=== PATIENT | female | born 1945 | race African-American/Black ===

== ENCOUNTER 2019-01-26 09:47 | Inpatient (IN) | payer MEDICARE, OTHER ==
[~2019-01-26 09:47] MED LIST: Heparin 10,000 UNITS/ 10 ML VIAL ONE
[2019-01-26 10:23] LABS: Bilirubin Negative (Negative); Blood, Urine Large (Negative); Clarity TURBID (Clear); Glucose, Urine (Dipstick) Negative (Negative); Leukocyte Large (Negative); Nitrite Positive (Negative); Protein, Urine (Dipstick) 300 mg/dL (Neg-Trace); pH, Urine 6.5 (5.0-9.0)
[2019-01-26 10:27] LABS: Bacteria/HPF 3+ HPF (None Seen); RBC/HPF GREATER THAN 50-TNTC HPF (0-3)
[2019-01-26 10:28] LABS: Pathc Cast-AUWi Flag 471.86 (0-2.49)
[2019-01-26 10:29] LABS: Specific Gravity, Urine 1.055 (1.002-1.036)
[2019-01-26 10:39] LABS: #Eosinphils 0.1 thou/uL (0.0-0.7); #Lymphocytes 2.7 thou/uL (1.20-3.40); #Monocytes 0.5 thou/uL (0.11-0.59); #Neutrophils 2.7 thou/uL (1.40-6.50); %Basophils 0.5 % (0.0-1.0); %Eosinophils 0.9 % (0.0-10.0); %Lymphocytes 45.9 % (21.0-51.0); %Monocytes 8.1 % (0.0-10.0); %Neutrophils 44.6 % (42.0-75.0); Hemoglobin 9.7 g/dL (12.0-16.0); Mean Corpuscular HGB CONC 31.6 g/dL (32.0-36.0); Mean Corpuscular Hemoglobin 28.5 pg (27.0-31.0); Mean Corpuscular Volume 90.1 fL (78.0-98.0); Mean Platelet Volume 6.6 fL (7.4-10.4); Platelet Count 463 thou/uL (130-400); RBC Distribution Width 14.1 % (11.5-14.5); Red Blood Cell (RBC) Count 3.39 mill/uL (4.20-5.40)
[2019-01-26 10:43] LABS: Hyaline Casts/LPF 0-3 HYALINE CAST LPF (0-3 Hyaline); Other Casts/LPF None Seen LPF (0-3 Hyaline)
[2019-01-26 10:45] LABS: Crystals/HPF None Seen HPF (Negative)
[2019-01-26 10:59] LABS: ALT (SGPT) 11 U/L (8-55); AST (SGOT) 17 U/L (5-34); Albumin 3.9 g/dL (3.4-4.8); Alkaline Phosphatase 70 U/L (40-150); Anion Gap 11 mmol/L (10-20); BUN (Urea Nitrogen) 15 mg/dL (9.8-20.1); Bilirubin, Total 0.6 mg/dL (0.2-1.2); Calc. Creatinine Clearance 0 mL/min (70-130); Calcium 10.1 mg/dL (7.8-10.44); Carbon Dioxide 30 mmol/L (23-31); Chloride 97 mmol/L (98-107); Estimated GFR-MDRD 81; Glucose 129 mg/dL (83-110); Lipase 24 U/L (8-78); Potassium 3.9 mmol/L (3.5-5.1); Protein, Total 7.9 g/dL (6.0-8.3); Sodium 134 mmol/L (136-145)
[2019-01-26] MEDS ORDERED: Piperacillin/Tazobactam 3.375 GM VIAL ONE (11:50)
[2019-01-26] MEDS ORDERED: Ondansetron PF 4 MG/2 ML Vial IVP PRN (14:50)
[2019-01-26 14:51] VITALS: BMI 20.2
[2019-01-26] MEDS ORDERED: MEROPENEM IVPB PRN (14:56)
[2019-01-26] MEDS ORDERED: MEROPENEM 1 GM/50 ML 1 GM in Premix Bag 1 BAG IVPB SCH (15:00)
[2019-01-26] MEDS: Sodium Chloride 0.9% 1,000 ML IV SCH (15:24)
[2019-01-26] MEDS: MEROPENEM 1 GM/50 ML 1 GM in Premix Bag 1 BAG IVPB SCH ×2 (16:31→23:48)
[2019-01-26] MEDS: Famotidine/PF 20 mg/2ml Vial SLOW IVP SCH (20:15)
[2019-01-26] MEDS ORDERED: Heparin 1,000 UNITS/ML VIAL ONE (20:15)
--- NOTE | 2019-01-27 00:02 | HP ---
CHIEF COMPLAINT: Sent from PCP's office for abdominal pain. HISTORY OF PRESENT ILLNESS: The patient is a 73-year-old female, who was sent from her PCP's office with complaints of left lower abdominal pain going on for the past month. Upon asking, the patient's , who is at the bedside, he stated that the patient has had about a 14-pound weight loss since about a month. He also states that she has had decreased appetite. Denied any fevers or chills; however, has been complaining of pain to her left lower quadrant. According to the patient, she has not been having any issues with having bowel movements; however, has not been having many bowel movements. Her last colonoscopy, I believe, was a few years back according to the , who is at the bedside. The patient today upon following up with the PCP, the PCP had ordered a CT abdomen and pelvis. The findings of the abdomen and pelvis CAT scan concerned the PCP, so the patient was admitted to the hospital for further evaluation. PAST MEDICAL HISTORY: The patient has a history of atrial fibrillation, hypertension, anemia, H pylori. PAST SURGICAL HISTORY: She has had a mitral valve repair. FAMILY HISTORY: History of heart disease and hypertension. ALLERGIES: SHE HAS NO KNOWN DRUG ALLERGIES. REVIEW OF SYSTEMS: All negative except for the ones mentioned above in the HPI. SOCIAL HISTORY: Denies any alcohol use, drug use, or smoking history. She is a full code and lives with her . PHYSICAL EXAMINATION: VITAL SIGNS: As of the following: Temperature of 97.6, 69, 16, 98% on room air and 122/55. GENERAL: She is awake, alert, and oriented x3, does not appear in any distress. CV: S1 and S2 present. No murmurs, rubs, or gallops. LUNGS: Clear to auscultation. No rhonchi or wheezes noted. HEENT: Normocephalic, atraumatic. No lymphadenopathy noted. Pupils are equal and reactive to light. ABDOMEN: Soft. Bowel sounds are present x2. She does have pain upon palpation to her left lower quadrant and umbilical area. NEUROVASCULAR: No focal deficits noted. SKIN: No cuts, lesions or bruises noted. LABORATORY RESULTS: As of the following: WBCs of 6.0, hemoglobin of 9.7, hematocrit of 30.5, platelets of 463. Chemistry: Sodium of 134, potassium of 3.9, BUN of 15, creatinine 0.83. She did have a CT abdomen and pelvis, which indicated a 2.8 x 2.6 cm fluid collection in the left paracolic gutter. Also, CT of abdomen and pelvis indicated distal descending colon and sigmoid colon diverticulitis. UA had positive nitrites. ASSESSMENT AND PLAN: The patient is a 73-year-old female, who presents to the hospital with complaints of generalized weakness and weight loss. 1. Diverticulitis with abscess. We will start the patient on IV antibiotics given the fact that the patient also has a urinary tract infection. Upon reviewing her records, had urinary tract infection in the past, her cultures have been indicating enterococcus and Escherichia coli; however, the Escherichia coli that she had last year was resistant to the quinolones and had intermediate reactivity to Zosyn. At this time, I will start her on meropenem and that will cover her intra-abdominal infection and also will cover her urinary tract infection. I will also consult Infectious Disease and I will consult Surgery if the patient requires any surgical intervention or drain placement. We will start her on some gentle hydration. We will keep her n.p.o. for now and continue to monitor. 2. Anemia. The patient is on Eliquis. I believe it is for paroxysmal atrial fibrillation. I will hold off on the Eliquis for now since she may require a surgical intervention. 3. Deep venous thrombosis prophylaxis. We will put the patient on some SCDs for now. Job ID: [id number]
--- NOTE | 2019-01-27 00:55 | CON ---
DATE OF CONSULTATION: 01/26/2019 REASON FOR CONSULTATION: Intraabdominal abscess. HISTORY OF PRESENT ILLNESS: A 73-year-old patient who has a history of sick sinus syndrome with a pacemaker; prior abnormal urine cytology, which led to multiple urological procedures but all negative specimens for bladder cancer and has had a previous colonoscopy about 6-[address] Bartlett, we do not have the report of that procedure, but apparently she did not have any major findings, who developed fairly rapid onset of abdominal pain in the left lower quadrant over the past few days and eventually was admitted. A CT of abdomen demonstrated what appears to be a diverticular abscess in the left lower quadrant. Currently, she is awake, appears in no distress. No headaches, visual symptoms, sore throat, odynophagia, or dysphagia. No cough, sputum production, chest pain, abdominal pain, or diarrhea. No genitourinary symptoms. No constipation. No joint symptoms. No neurological symptoms. PAST MEDICAL HISTORY: Sick sinus syndrome with pacemaker, abnormal urine cytology which was performed for evaluation of microscopic hematuria, urethral stricture. ALLERGIES: SHE HAS NO DRUG ALLERGIES. CURRENT MEDICATIONS: Include: 1. Tylenol. 2. Meropenem. 3. Zofran. FAMILY HISTORY: Noncontributory. SOCIAL HISTORY: She is . She used to work for [employer] at the [employer] for many years. No never smoker. No alcoholic beverage use. PHYSICAL EXAMINATION: VITAL SIGNS: T-max 97.6, pulse 69, respirations 16, and O2 saturation 98%. GENERAL: Appears in no distress. SKIN: Unremarkable. She has a peripheral IV access. No Alarcon catheter. No lymphadenopathy. HEENT: Ocular movements conjugate. Oral cavity is not remarkable. NECK: Supple. No jugular venous distention. LUNGS: Symmetric, clear breath sounds. HEART: S1 and S2, regular rate. No S3 or S4. ABDOMEN: Soft, not distended or tender. No ascites. No bladder distention. MUSCULOSKELETAL: No joint inflammatory process. Pulses 1+ in dorsalis pedis. Plantar responses are flexor. Moves all extremities equally. LABORATORY DATA: White cell count 6.0, hemoglobin 9.7, platelets 463 with normal differential. Sodium 134, creatinine 0.83. Normal liver profile. Urinalysis greater than 50 wbc's, greater than 50 rbc's. The abdomen and pelvis CT which was performed demonstrates fluid in the left paracolic gutter peripherally enhancement collection air-fluid level left lower quadrant measuring 2.8 x 2.6 cm contiguous with a more superficial component, which was probably air-filled measuring 5.3 x 1.7. A diverticular abscess is favored. This inflamed collection does abut the superior aspect of the urinary bladder. There are diverticula throughout the colon, distal descending colon wall thickening, adjacent pericolonic stranding suggestive of diverticulitis. ASSESSMENT: 1. Abdominal pain of new onset. 2. History of sick sinus syndrome with pacemaker. 3. History of episodes of hematuria with normal biopsies. 4. Abnormal findings on CT scan associated with abdominal pain suggestive of ruptured diverticulitis with abscess. DISCUSSION: The area of the abscess and diverticulitis close to the bladder and this may be the reason for her episodes of hematuria. She may develop a fistula between the bladder and the diverticular abscess. I have discussed radiology and they will attempt an aspirate of the area and to leave a drain and get some cultures and we will continue meropenem until have the results of the above. Hopefully, be able to transition to oral therapy. Otherwise, she will need a PICC line placement and treatment. It appears that if this is successful, then we could avoid having have to intervene surgically. Job ID: [id number]
[2019-01-27] MEDS: MEROPENEM 1 GM/50 ML 1 GM in Premix Bag 1 BAG IVPB SCH ×3 (06:02→23:54)
[2019-01-27 06:41] LABS: #Eosinphils 0.1 thou/uL (0.0-0.7); #Lymphocytes 3.1 thou/uL (1.20-3.40); #Monocytes 0.6 thou/uL (0.11-0.59); #Neutrophils 2.8 thou/uL (1.40-6.50); %Basophils 0.2 % (0.0-1.0); %Eosinophils 1.4 % (0.0-10.0); %Monocytes 9.2 % (0.0-10.0); %Neutrophils 42.2 % (42.0-75.0); Hemoglobin 8.9 g/dL (12.0-16.0); Mean Corpuscular HGB CONC 32.5 g/dL (32.0-36.0); Mean Corpuscular Hemoglobin 29.1 pg (27.0-31.0); Mean Corpuscular Volume 89.6 fL (78.0-98.0); Mean Platelet Volume 8.1 fL (7.4-10.4); Platelet Count 346 thou/uL (130-400); RBC Distribution Width 14.4 % (11.5-14.5); Red Blood Cell (RBC) Count 3.06 mill/uL (4.20-5.40); White Blood Cell (WBC) Count 6.6 thou/uL (4.8-10.8)
[2019-01-27 06:56] LABS: Anion Gap 12 mmol/L (10-20); BUN (Urea Nitrogen) 11 mg/dL (9.8-20.1); Calc. Creatinine Clearance 64 mL/min (70-130); Calcium 9.2 mg/dL (7.8-10.44); Carbon Dioxide 24 mmol/L (23-31); Chloride 103 mmol/L (98-107); Estimated GFR-MDRD Greater than 90; Glucose 98 mg/dL (83-110); Potassium 4.2 mmol/L (3.5-5.1); Sodium 135 mmol/L (136-145)
[2019-01-27] MEDS: Famotidine/PF 20 mg/2ml Vial SLOW IVP SCH ×2 (08:11→20:44)
[2019-01-27] MEDS: Sodium Chloride 0.9% 1,000 ML IV SCH ×2 (11:07→11:30)
--- NOTE | 2019-01-27 12:19 | CON ---
DATE OF CONSULTATION: CHIEF COMPLAINT: Abdominal pain. HISTORY OF PRESENT ILLNESS: Ms. Perez is a 73-year-old woman with left lower quadrant abdominal pain beginning around the start of this week. She states that she has had pain off and on for the past month or so, but it has been worse for the past week. She denies any fevers or chills, nausea, vomiting, or diarrhea. She states that she had a normal bowel movement last night. She states that she has had a colonoscopy within the past [address] Bartlett, although I do not have that report. A CT of the abdomen and pelvis was performed and it showed a left lower quadrant diverticular abscess and diverticulitis involving the distal descending and proximal sigmoid colon. The patient states that her memory is poor, so much of the history was obtained through chart review. The patient reports that she has lost about 14 pounds since the onset of her abdominal pain a month ago and has not been having very frequent bowel movements. PAST MEDICAL HISTORY: Heart problems according to the patient, but she denies history of AR or heart failure. According to the chart, she has a history of atrial fibrillation and hypertension, anemia, and H pylori. OUTPATIENT MEDICATIONS: 1. Eliquis. 2. Aspirin. 3. Carvedilol. 4. Vitamin D. 5. Donepezil. 6. Lasix. 7. Losartan. 8. Potassium. INPATIENT MEDICATIONS: Include: 1. Pepcid. 2. Meropenem. 3. Zofran. 4. Normal saline. PAST SURGICAL HISTORY: Mitral valve repair according to the chart. Hysterectomy. FAMILY HISTORY: Heart disease and hypertension. ALLERGIES: NO KNOWN DRUG ALLERGIES. SOCIAL HISTORY: She lives with her , who is in good health. Denies any smoking, alcohol, or drug use. PHYSICAL EXAMINATION: VITAL SIGNS: The patient has been afebrile since her admission to the hospital. Heart rate 70, respirations 18, 94% saturated on room air, and blood pressure 124/52. GENERAL: Reveals a healthy-appearing elderly woman, in no acute distress. She is not flushed or toxic in appearance. She is not jaundiced or icteric. HEENT: Unremarkable. NECK: Supple without lymphadenopathy or thyroid nodules. HEART: Regular in its rate and rhythm without murmurs, rubs, or gallops. LUNGS: Clear to auscultation bilaterally. ABDOMEN: Soft and nondistended. She has a healed lower midline scar. No palpable masses or hernias. She is tender to palpation in the left lower quadrant greater than right lower quadrant. Upper abdomen is nontender to palpation. EXTREMITIES: Warm and well perfused without edema. NEURO: No focal deficits. PSYCHIATRIC: Alert and cooperative. She is oriented to self, place and situation, and can give me the month and the year, but not the day of the week or the date. LABORATORY DATA: White count is 6.6. No shift. Hematocrit is 27.4. Sodium is slightly low at 135. Other electrolytes and LFTs are unremarkable. UA was positive for blood and nitrites, but also had 11-20 squamous cells, 3+ bacteria, leukocyte esterase, too numerous to count red cells and white cells. CT images are reviewed and I agree with the written report. The patient has abscess cavity extending from her sigmoid colon and abutting the bladder. There is gas and fluid in this cavity and the adjacent colon is inflamed in appearance. ASSESSMENT: Diverticulitis with diverticular abscess. The patient is already scheduled for percutaneous drainage by Interventional Radiology. She is on meropenem pending culture results. Dr. Silva is managing her antibiotics. If she responds to drainage on antibiotics, then surgery will likely not be necessary. However, she is at risk for fistula formation. I believe that her UA is contaminated, but did have Escherichia coli and Pseudomonas on preliminary culture. The patient does not have any history of frequent urinary tract infections or hematuria or other symptoms to suggest a colovesical fistula. There is no air in the bladder. I will continue to follow the patient while she is admitted. Job ID: [id number]
[2019-01-27 14:25] LABS: INR-International Normal Ratio 1.1; PTT 33.1 SEC (22.9-36.1); Prothrombin Time 14.3 SEC (12.0-14.7)
[2019-01-27] MEDS ORDERED: Sodium Bicarbonate 2.5 MEQ/5 ML VIAL ONE (14:33)
[2019-01-27] MEDS ORDERED: Midazolam HCl 2 mg/2 ml Vial ONE (14:34)
[2019-01-27] MEDS ORDERED: Fentanyl 100 MCG/2 ML VIAL ONE (14:34)
--- NOTE | 2019-01-27 16:29 | CT ---
FCT-guided intra-abdominal abscess drainage: 01/27/2019 TECHNIQUE: Signed proxy informed consent obtained. Supine and position CT table. Left lower quadrant skin prepar ed and draped in usual sterile fashion. 1% lidocaine, buffered with sodium bicarbonate, applied super ficially with 25-gauge needle, then deeply with 22-gauge spinal needle under step CT guidance. The re st of the procedure was also performed under step CT guidance. 5 [place] 15 cm Yueh catheter advanced from lateral approach into abscess at left lateral pelvic inlet. Stylette removed. 5 mL syringe used to aspirate 2 mm of pus, which was sent to laboratory for culture and sensitivity. 0.035 inch short s tiff Amplatz wire advanced through catheter. The Yueh catheter was exchanged over the guidewire for 8 [place] dilator. Dilator was exchanged for 8 [place] general purpose drainage catheter over the wire. Stylette and wire were removed. Drainage catheter pigtail loop was formed and locked into place. Cath eter was sutured in place. Patient tolerated well. No complications. IMPRESSION: Successful placement of 8 [place] general purpose drainage catheter into left lower quadrant diverticu lar abscess.
--- NOTE | 2019-01-27 19:43 | PDOC.PN ---
- Subjective Encounter Start Date: 01/27/19 Encounter Start Time: 08:00 Pt seen for followup re: diverticular abscess. Says she feels well, no complaints. - Objective Vital Signs & Weight: Vital Signs (12 hours) Temp Pulse Resp BP Pulse Ox 01/27/19 19:14 68 F L 68 20 106/65 95 01/27/19 16:32 97.7 F 69 16 126/76 97 01/27/19 11:30 98.0 F 70 18 108/64 96 01/27/19 09:50 94 L Weight Weight 133 lb 5 oz I&O: 01/26/19 01/27/19 01/28/19 06:59 06:59 06:59 Intake Total 365 1150 Output Total 0 Balance 365 1150 Result Diagrams: 01/27/19 05:27 01/27/19 05:27 Additional Labs: Accuchecks 01/27/19 04:59 POC Glucose 113 H Phys Exam - Physical Examination Constitutional: NAD HEENT: moist MMs Neck: supple Respiratory: clear to auscultation bilateral Cardiovascular: RRR Gastrointestinal: soft, non-tender, positive bowel sounds Neurological: moves all 4 limbs Psychiatric: normal affect Dx/Plan (1) Colonic diverticular abscess Code(s): K57.20 - DVTRCLI OF LG INT W PERFORATION AND ABSCESS W/O BLEEDING Status: Acute Comment: Plan for IR-guided drainage, continue IV antibiotics as below (2) UTI (urinary tract infection) Status: Acute Comment: continue IV meropenem (3) Afib Code(s): I48.91 - UNSPECIFIED ATRIAL FIBRILLATION Status: Chronic Comment: Eliquis on hold (4) HTN (hypertension) Code(s): I10 - ESSENTIAL (PRIMARY) HYPERTENSION Status: Chronic Comment: controlled - Plan * . Review of Systems - Review of Systems Constitutional: negative: fever, chills, sweats, weakness, malaise Cardiovascular: negative: chest pain, palpitations, orthopnea, paroxysmal nocturnal dyspnea, edema, light headedness Gastrointestinal: negative: Nausea, Vomiting, Abdominal Pain, Diarrhea, Constipation, Melena, Hematochezia - Medications/Allergies Allergies/Adverse Reactions: Allergies Allergy/AdvReac Type Severity Reaction Status Date / Time No Known Drug Allergies Allergy Verified 01/26/19 14:56 Medications: Current Medications Acetaminophen (Tylenol) 650 mg PO Q4H PRN PRN Reason: Headache/Fever/Mild Pain (1-3) Famotidine (Pepcid) 20 mg SLOW IVP Q12HR [facility] Last Admin: 01/27/19 08:11 Dose: 20 mg Sodium Chloride (Normal Saline 0.9%) 1,000 mls @ 50 mls/hr IV .Q20H [facility] Last Admin: 01/27/19 11:30 Dose: 1,000 mls Meropenem 1 gm/ Device 50 mls @ 100 mls/hr IVPB 0700,1500,2300 [facility] Last Admin: 01/27/19 16:33 Dose: 50 mls Miscellaneous Medication (Pharmacy To Dose) 1 each IVPB PRN PRN PRN Reason: Pharmacy to dose Ondansetron HCl (Zofran) 4 mg IVP Q6H PRN PRN Reason: Nausea/Vomiting
[2019-01-27] MEDS: Acetaminophen 325 MG TAB PO PRN (20:44)
[2019-01-28] MEDS: MEROPENEM 1 GM/50 ML 1 GM in Premix Bag 1 BAG IVPB SCH ×3 (05:22→23:04)
[2019-01-28] MEDS: Sodium Chloride 0.9% 1,000 ML IV SCH ×2 (05:23→08:53)
[2019-01-28] MEDS: Famotidine/PF 20 mg/2ml Vial SLOW IVP SCH ×2 (08:53→19:59)
--- NOTE | 2019-01-28 13:42 | PDOC.PN ---
- Subjective Encounter Start Date: 01/28/19 Encounter Start Time: 08:20 Pt seen for followup for diverticular abscess. says she feels well, no complaints. - Objective MAR Reviewed: Yes Vital Signs & Weight: Vital Signs (12 hours) Temp Pulse Resp BP Pulse Ox 01/28/19 08:00 96 01/28/19 07:17 99.1 F 70 16 103/68 96 01/28/19 04:00 99.0 F 69 20 115/77 96 Weight Weight 133 lb 5 oz I&O: 01/27/19 01/28/19 01/29/19 06:59 06:59 06:59 Intake Total 365 1150 120 Output Total 5 Balance 365 1145 120 Result Diagrams: 01/27/19 05:27 01/27/19 05:27 Additional Labs: Labs reviewed by me Phys Exam - Physical Examination Constitutional: NAD HEENT: moist MMs Neck: supple Respiratory: clear to auscultation bilateral Cardiovascular: RRR Gastrointestinal: soft LLQ drain Neurological: moves all 4 limbs Psychiatric: normal affect Dx/Plan (1) Colonic diverticular abscess Code(s): K57.20 - DVTRCLI OF LG INT W PERFORATION AND ABSCESS W/O BLEEDING Status: Acute Comment: s/p IR-guided drainage. Continue IV antibiotics as below (2) UTI (urinary tract infection) Status: Acute Comment: on IV meropenem (3) Afib Code(s): I48.91 - UNSPECIFIED ATRIAL FIBRILLATION Status: Chronic Comment: will resume Eliquis tomorrow (4) HTN (hypertension) Code(s): I10 - ESSENTIAL (PRIMARY) HYPERTENSION Status: Chronic Comment: controlled - Plan * . Review of Systems - Review of Systems Respiratory: negative: Cough, Shortness of Breath, SOB with Excertion, Pleuritic Pain, Wheezing Cardiovascular: negative: chest pain, palpitations, orthopnea, paroxysmal nocturnal dyspnea, edema, light headedness - Medications/Allergies Allergies/Adverse Reactions: Allergies Allergy/AdvReac Type Severity Reaction Status Date / Time No Known Drug Allergies Allergy Verified 01/26/19 14:56 Medications: Current Medications Acetaminophen (Tylenol) 650 mg PO Q4H PRN PRN Reason: Headache/Fever/Mild Pain (1-3) Last Admin: 01/27/19 20:44 Dose: 650 mg Aspirin (Aspirin Chewable) 81 mg PO DAILY [facility] Donepezil HCl (Aricept) 5 mg PO HS [facility] Famotidine (Pepcid) 20 mg SLOW IVP Q12HR [facility] Last Admin: 01/28/19 08:53 Dose: 20 mg Sodium Chloride (Normal Saline 0.9%) 1,000 mls @ 50 mls/hr IV .Q20H [facility] Last Admin: 01/28/19 08:53 Dose: 1,000 mls Meropenem 1 gm/ Device 50 mls @ 100 mls/hr IVPB 0700,1500,2300 [facility] Last Admin: 01/28/19 05:22 Dose: 50 mls Miscellaneous Medication (Pharmacy To Dose) 1 each IVPB PRN PRN PRN Reason: Pharmacy to dose Non-Formulary Medication (Carvedilol [Carvedilol]) 6.25 mg PO QAM [facility] Non-Formulary Medication (Carvedilol [Carvedilol]) 12.5 mg PO QPM [facility] Non-Formulary Medication (Cholecalciferol (Vitamin D3) [Vitamin D3]) 1,000 unit PO DAILY [facility]
[2019-01-28] MEDS: Acetaminophen 325 MG TAB PO PRN ×2 (14:45→19:59)
--- NOTE | 2019-01-28 15:03 | PRG ---
DATE OF SERVICE: 01/28/2019 SUBJECTIVE: Ms. Perez is feeling better. Still with pain in the left lower quadrant, which is moderate. Voiding without difficulty. No respiratory symptoms. No vomiting. Dr. Love evaluated the patient and she recommends conservative management at this point in time. OBJECTIVE: VITAL SIGNS: T-max 99.7, blood pressure 103/68. GENERAL: Awake, alert, oriented, in no distress. HEENT: Ocular movements conjugate. NECK: Supple. LUNGS: Symmetric, clear breath sounds. HEART: S1-S2, regular rate. ABDOMEN: Soft with moderate tenderness in left flank and left lower quadrant. EXTREMITIES: Moves all extremities equally. LABORATORY DATA: White cell count 6.6, hemoglobin 8.9, and platelets 346. Sodium 135, creatinine 0.73. Microbiology showed two gram-negative rods retrieved from the percutaneous aspirate. The percutaneous aspirate was performed by Dr. Sultana and about 2 mL of purulent exudate was obtained. The Gram stain of this material showed polymicrobial priti with gram-positive cocci, gram-negative rods and gram-positive rods typical for bowel communicating abscesses. The patient is currently on meropenem to be continued. ASSESSMENT AND DISCUSSION: Abdominal pain with evidence of ruptured diverticulitis. There is a concern with early bladder penetration but thus far, there is no overt evidence to suggest this complication. We will continue with IV meropenem until we have the final results of the cultures and then decide if she is going to need oral or continuation of IV therapy with a PICC line in the outpatient setting. Job ID: [id number]
[2019-01-28] MEDS: Donepezil HCl 5 MG TAB PO SCH (19:59)
[2019-01-28] MEDS: Carvedilol 6.25 MG TAB PO SCH (20:00)
[2019-01-29] MEDS: MEROPENEM 1 GM/50 ML 1 GM in Premix Bag 1 BAG IVPB SCH ×3 (05:49→22:24)
[2019-01-29] MEDS: Sodium Chloride 0.9% 1,000 ML IV SCH (05:49)
[2019-01-29 07:47] LABS: #Lymphocytes 1.9 thou/uL (1.20-3.40); #Monocytes 0.5 thou/uL (0.11-0.59); #Neutrophils 5.3 thou/uL (1.40-6.50); %Basophils 0.2 % (0.0-1.0); %Eosinophils 0.4 % (0.0-10.0); %Lymphocytes 24.6 % (21.0-51.0); %Monocytes 6.3 % (0.0-10.0); %Neutrophils 68.4 % (42.0-75.0); Hemoglobin 8.9 g/dL (12.0-16.0); Mean Corpuscular HGB CONC 32.7 g/dL (32.0-36.0); Mean Corpuscular Hemoglobin 28.8 pg (27.0-31.0); Mean Platelet Volume 6.2 fL (7.4-10.4); Platelet Count 369 thou/uL (130-400); RBC Distribution Width 14.1 % (11.5-14.5); Red Blood Cell (RBC) Count 3.08 mill/uL (4.20-5.40); White Blood Cell (WBC) Count 7.7 thou/uL (4.8-10.8)
[2019-01-29 08:03] LABS: Anion Gap 12 mmol/L (10-20); BUN (Urea Nitrogen) 9 mg/dL (9.8-20.1); Calc. Creatinine Clearance 57 mL/min (70-130); Calcium 9.3 mg/dL (7.8-10.44); Carbon Dioxide 25 mmol/L (23-31); Chloride 101 mmol/L (98-107); Estimated GFR-MDRD 82; Glucose 107 mg/dL (83-110); Potassium 4.5 mmol/L (3.5-5.1); Sodium 133 mmol/L (136-145)
[2019-01-29] MEDS: Potassium Chloride 10 MEQ TAB PO SCH (08:40)
[2019-01-29] MEDS: Apixaban 5 MG TAB PO SCH ×2 (08:41→20:22)
[2019-01-29] MEDS: Carvedilol 6.25 MG TAB PO SCH ×2 (08:41→20:22)
[2019-01-29] MEDS: Aspirin Chewable 81 MG TAB PO SCH (08:41)
[2019-01-29] MEDS: Furosemide 20 MG TAB PO SCH (08:41)
[2019-01-29] MEDS: Losartan 25 MG TAB PO SCH (08:42)
[2019-01-29] MEDS: Famotidine/PF 20 mg/2ml Vial SLOW IVP SCH (08:42)
--- NOTE | 2019-01-29 16:01 | PDOC.GSPN ---
Surgery Progress Note: Subj - Subjective Narrative: Feels ok, appetitie poor. Pain about the same as yesterday. Scant murky drainage in bag. decorating machine tender in L>RLQ, no R/R/G. Pseudomonas and EC on prelim cx. A/P) Diverticular abscess s/p perc drainage. Await final culture/sensitivities. Cont med mgmt. Encouraged Ensure and ambulation. Surgery Progress Note: Obj - Vital signs Vital signs: Vital Signs - Most Recent Temp Pulse Resp BP Pulse Ox 99.2 F 69 14 100/60 93 L 01/29/19 08:00 01/29/19 08:00 01/29/19 08:00 01/29/19 08:41 01/29/19 08:42 Surgery Progress Note: Results - Labs Result Diagrams: 01/29/19 07:38 01/29/19 07:38 Lab results: Laboratory Results - last 24 hr 01/29/19 01/29/19 07:38 07:38 WBC 7.7 RBC 3.08 L Hgb 8.9 L Hct 27.1 L MCV 88.0 MCH 28.8 MCHC 32.7 RDW 14.1 Plt Count 369 MPV 6.2 L Neutrophils % 68.4 Lymphocytes % 24.6 Monocytes % 6.3 Eosinophils % 0.4 Basophils % 0.2 Neutrophils # 5.3 Lymphocytes # 1.9 Monocytes # 0.5 Eosinophils # 0.0 Basophils # 0.0 Sodium 133 L Potassium 4.5 Chloride 101 Carbon Dioxide 25 Anion Gap 12 BUN 9 L Creatinine 0.82 Estimated GFR (MDRD) 82 Glucose 107 Calcium 9.3
--- NOTE | 2019-01-29 16:11 | PDOC.PN ---
- Subjective Encounter Start Date: 01/29/19 Encounter Start Time: 08:40 Pt seen for followup re: diverticular abscess. Denies chest pain, shortness of breath, fevers or chills. - Objective MAR Reviewed: Yes Vital Signs & Weight: Vital Signs (12 hours) Temp Pulse Resp BP BP Pulse Ox 01/29/19 08:42 93 L 01/29/19 08:41 100/60 01/29/19 08:00 99.2 F 69 14 100/60 93 L Weight Weight 133 lb 5 oz I&O: 01/28/19 01/29/19 01/30/19 06:59 06:59 06:59 Intake Total 1150 1020 Output Total 5 45 Balance 1145 975 Result Diagrams: 01/29/19 07:38 01/29/19 07:38 Additional Labs: Labs reviewed by me Phys Exam - Physical Examination Constitutional: NAD HEENT: moist MMs Neck: supple Respiratory: clear to auscultation bilateral Cardiovascular: RRR Gastrointestinal: soft Neurological: moves all 4 limbs Psychiatric: normal affect Dx/Plan (1) Colonic diverticular abscess Code(s): K57.20 - DVTRCLI OF LG INT W PERFORATION AND ABSCESS W/O BLEEDING Status: Acute Comment: s/p IR-guided drainage. Continue IV meropenem for Pseudomonas and Enterococcus. (2) UTI (urinary tract infection) Status: Acute Comment: on IV meropenem, E. coli and presumptive pseudomonas aeruginosa. (3) Afib Code(s): I48.91 - UNSPECIFIED ATRIAL FIBRILLATION Status: Chronic Comment: Eliquis resumed (4) HTN (hypertension) Code(s): I10 - ESSENTIAL (PRIMARY) HYPERTENSION Status: Chronic Comment: controlled - Plan * . Review of Systems - Review of Systems Respiratory: negative: Cough, Shortness of Breath, SOB with Excertion, Pleuritic Pain, Wheezing Cardiovascular: negative: chest pain, palpitations, orthopnea, paroxysmal nocturnal dyspnea, edema, light headedness - Medications/Allergies Allergies/Adverse Reactions: Allergies Allergy/AdvReac Type Severity Reaction Status Date / Time No Known Drug Allergies Allergy Verified 01/26/19 14:56 Medications: Current Medications Acetaminophen (Tylenol) 650 mg PO Q4H PRN PRN Reason: Headache/Fever/Mild Pain (1-3) Last Admin: 04/06/19 19:59 Dose: 650 mg Apixaban (Eliquis) 5 mg PO BID [facility] Last Admin: 01/29/19 08:41 Dose: 5 mg Aspirin (Aspirin Chewable) 81 mg PO DAILY [facility] Last Admin: 01/29/19 08:41 Dose: 81 mg Carvedilol (Coreg) 6.25 mg PO QAM [facility] Last Admin: 01/29/19 08:41 Dose: 6.25 mg Carvedilol (Coreg) 12.5 mg PO QPM [facility] Last Admin: 01/28/19 20:00 Dose: Not Given Cholecalciferol (Vitamin D3) 1,000 units PO DAILY [facility] Last Admin: 01/29/19 08:42 Dose: 1,000 units Donepezil HCl (Aricept) 5 mg PO HS [facility] Last Admin: 01/28/19 19:59 Dose: 5 mg Famotidine (Pepcid) 20 mg SLOW IVP Q12HR [facility] Last Admin: 01/29/19 08:42 Dose: 20 mg Furosemide (Lasix) 40 mg PO DAILY [facility] Last Admin: 01/29/19 08:41 Dose: 40 mg Sodium Chloride (Normal Saline 0.9%) 1,000 mls @ 50 mls/hr IV .Q20H [facility] Last Admin: 01/29/19 05:49 Dose: 1,000 mls Meropenem 1 gm/ Device 50 mls @ 100 mls/hr IVPB 0700,1500,2300 [facility] Last Admin: 01/29/19 14:36 Dose: 50 mls Losartan Potassium (Cozaar) 25 mg PO QAM [facility] Last Admin: 01/29/19 08:42 Dose: 25 mg Miscellaneous Medication (Pharmacy To Dose) 1 each IVPB PRN PRN PRN Reason: Pharmacy to dose Potassium Chloride (Klor-Con 10) 10 meq PO QAM-WM [facility] Last Admin: 01/29/19 08:40 Dose: 10 meq
[2019-01-29] MEDS: Acetaminophen 325 MG TAB PO PRN (20:21)
[2019-01-29] MEDS: Donepezil HCl 5 MG TAB PO SCH (20:22)
[2019-01-29] MEDS: Famotidine 20 MG TAB PO SCH (20:25)
[2019-01-30] MEDS: Sodium Chloride 0.9% 1,000 ML IV SCH (05:07)
[2019-01-30] MEDS: Acetaminophen 325 MG TAB PO PRN ×3 (05:46→21:00)
[2019-01-30] MEDS: MEROPENEM 1 GM/50 ML 1 GM in Premix Bag 1 BAG IVPB SCH ×2 (06:00→14:45)
[2019-01-30] MEDS: Furosemide 20 MG TAB PO SCH (08:30)
[2019-01-30] MEDS: Famotidine 20 MG TAB PO SCH ×2 (08:30→21:00)
[2019-01-30] MEDS: Aspirin Chewable 81 MG TAB PO SCH (08:30)
[2019-01-30] MEDS: Carvedilol 6.25 MG TAB PO SCH ×2 (08:31→20:59)
[2019-01-30] MEDS: Apixaban 5 MG TAB PO SCH (08:31)
[2019-01-30] MEDS: Potassium Chloride 10 MEQ TAB PO SCH (08:32)
[2019-01-30] MEDS: Losartan 25 MG TAB PO SCH (08:33)
[2019-01-30] MEDS ORDERED: VANCOMYCIN IVPB PRN (14:47)
[2019-01-30] MEDS ORDERED: Iopamidol 370 76% 50 ML VIAL FS ONE (14:50)
[2019-01-30] MEDS ORDERED: ISOVUE-370 76%-LOCM 1 ML ONE (14:50)
[2019-01-30] MEDS ORDERED: Vancomycin HCl 1 GM in Premix Bag 1 BAG IVPB SCH (15:00)
[2019-01-30] MEDS: Vancomycin HCl 1.25 GM in Sodium Chloride 0.9% 250 ML 250 ML IVPB SCH (16:56)
[2019-01-30] MEDS ORDERED: Meropenem 2 GM in Sodium Chloride 0.9% 100 ML IVPB SCH (17:02)
--- NOTE | 2019-01-30 17:28 | PDOC.PN ---
- Subjective Encounter Start Date: 01/30/19 Encounter Start Time: 15:00 Patient seen and examined for Abd abscess. No fever/chills. No new complaints. No overnight events - Objective MAR Reviewed: Yes Vital Signs & Weight: Vital Signs (12 hours) Temp Pulse Resp BP BP BP Pulse Ox 01/30/19 17:04 98.7 F 01/30/19 12:30 97.7 F 62 16 96/52 L 95 01/30/19 12:00 97.7 F 70 16 94/62 90 L 01/30/19 08:31 94/55 L 01/30/19 08:15 98.0 F 70 16 94/55 L 94 L 01/30/19 08:00 94 L Weight Weight 133 lb 5 oz I&O: 01/29/19 01/30/19 01/31/19 06:59 06:59 06:59 Intake Total 1020 1919 Output Total 45 11 Balance 975 1908 Result Diagrams: 01/29/19 07:38 01/29/19 07:38 Phys Exam - Physical Examination Constitutional: NAD Respiratory: no wheezing, no rhonchi Cardiovascular: no rub, irregular Gastrointestinal: soft, positive bowel sounds mild gen tenderness Musculoskeletal: no edema Neurological: moves all 4 limbs Dx/Plan - Plan DVT proph w/SCDs 1. Acute Diverticulitis with abscess s/p CT drainage 2. HTN 3. Chronic Afib on anticoag 4. Chronic Anemia PLAN: Hold Lasix/Losartan Cont gentle IVF Cont Meropenem Add IV Vancomycin AM labs Cont other meds as below Microbiology 01/26/19 09:50 Urine voided Urine Culture - Final Escherichia coli Presumptive Pseudo aeruginosa 01/27/19 15:50 Abdomen - Abscess Bacterial Culture - Preliminary Pseudomonas aeruginosa Enterococcus species 01/26/19 11:34 Venous blood - Right Arm Blood Culture - Preliminary NO GROWTH AT 48 HOURS 01/26/19 11:34 Venous blood - Left Arm Blood Culture - Preliminary NO GROWTH AT 48 HOURS Review of Systems - Review of Systems Respiratory: negative: Cough, Dry, Shortness of Breath, Hemoptysis, SOB with Excertion, Pleuritic Pain, Sputum, Wheezing Cardiovascular: negative: chest pain, palpitations, orthopnea, paroxysmal nocturnal dyspnea, edema, light headedness, other - Medications/Allergies Allergies/Adverse Reactions: Allergies Allergy/AdvReac Type Severity Reaction Status Date / Time No Known Drug Allergies Allergy Verified 01/26/19 14:56 Medications: Current Medications Acetaminophen (Tylenol) 650 mg PO Q4H PRN PRN Reason: Headache/Fever/Mild Pain (1-3) Last Admin: 01/30/19 14:55 Dose: 650 mg Apixaban (Eliquis) 5 mg PO BID [facility] Last Admin: 01/30/19 08:31 Dose: 5 mg Aspirin (Aspirin Chewable) 81 mg PO DAILY [facility] Last Admin: 01/30/19 08:30 Dose: 81 mg Carvedilol (Coreg) 6.25 mg PO QAM [facility] Last Admin: 01/30/19 08:31 Dose: 6.25 mg Carvedilol (Coreg) 12.5 mg PO QPM [facility] Last Admin: 01/29/19 20:22 Dose: 12.5 mg Cholecalciferol (Vitamin D3) 1,000 units PO DAILY [facility] Last Admin: 01/30/19 08:30 Dose: 1,000 units Donepezil HCl (Aricept) 5 mg PO HS [facility] Last Admin: 01/29/19 20:22 Dose: 5 mg Famotidine (Pepcid) 20 mg PO Q12HR [facility] Last Admin: 01/30/19 08:30 Dose: 20 mg Furosemide (Lasix) 40 mg PO DAILY [facility] Last Admin: 01/30/19 08:30 Dose: 40 mg Sodium Chloride (Normal Saline 0.9%) 1,000 mls @ 50 mls/hr IV .Q20H [facility] Last Admin: 01/30/19 05:07 Dose: 1,000 mls Vancomycin HCl 1.25 gm/ Sodium (Chloride) 250 mls @ 166.667 mls/hr IVPB Q24H [facility] Last Admin: 01/30/19 16:56 Dose: 250 mls Meropenem 2 gm/ Device 100 mls @ 100 mls/hr IVPB 0700,1500,2300 [facility] Losartan Potassium (Cozaar) 25 mg PO QAM [facility] Last Admin: 01/30/19 08:33 Dose: Not Given Miscellaneous Medication (Pharmacy To Dose) 1 each IVPB PRN PRN PRN Reason: Pharmacy to dose Miscellaneous Medication (Pharmacy To Dose) 1 each IVPB PRN PRN PRN Reason: Pharmacy to dose: VANCO Potassium Chloride (Klor-Con 10) 10 meq PO QAM[facility] Last Admin: 01/30/19 08:32 Dose: 10 meq
--- NOTE | 2019-01-30 18:23 | PRG ---
DATE OF SERVICE: 01/30/2019 SUBJECTIVE: She is still quite apathetic and not walking, not eating much, had a fever again. The pain in the abdomen has intensified in the left lower quadrant. OBJECTIVE: HEENT: Ocular movements conjugate. LUNGS: Clear. HEART: S1 and S2. Regular rate. ABDOMEN: Quite tender in the left lower quadrant. EXTREMITIES: Moves all extremities equally. LABORATORY DATA: White cell count 7.7, hemoglobin 8.9, and platelets 369. Sodium 133 and creatinine 0.82. The aspirate from the abscess showed Pseudomonas aeruginosa, has a broad susceptibility profile in Enterococcus species. The urine culture revealed Pseudomonas aeruginosa and E. coli. ASSESSMENT AND DISCUSSION: Abdominal pain with ruptured diverticulitis, status post percutaneous aspirate and drain placement, now with worsening pain. We will repeat CT of abdomen pelvis with contrast and increase the dose of meropenem. Continue monitoring. Job ID: [id number]
[2019-01-30] MEDS: Docusate 100 MG CAP PO SCH (20:59)
[2019-01-30] MEDS: Donepezil HCl 5 MG TAB PO SCH (20:59)
--- NOTE | 2019-01-30 21:27 | CT ---
CT ABDOMEN AND PELVIS WITH IV AND ORAL CONTRAST: History: Diverticulitis with worsening pain. Drain placed in the left lower quadrant three days ago. FINDINGS: Comparison is made with exam of 01-26-19. There has been interval placement of a left lower quadrant drainage catheter. A large amount of air i s seen in the left lower quadrant anterior abdominal wall. 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 The remainder of the exam is otherwise stable with new mild atelectatic changes in the lung bases. Discussed over the telephone with Dr. Escobedo at 9:01 p.m. POS: [facility]
[2019-01-31] MEDS: Famotidine 20 MG TAB PO SCH ×2 (09:12→19:35)
[2019-01-31] MEDS: Aspirin Chewable 81 MG TAB PO SCH (09:12)
[2019-01-31] MEDS: Carvedilol 6.25 MG TAB PO SCH ×2 (09:12→19:33)
[2019-01-31] MEDS: Docusate 100 MG CAP PO SCH ×2 (09:12→19:35)
[2019-01-31] MEDS: Meropenem 2 GM in Sodium Chloride 0.9% 100 ML IVPB SCH ×2 (09:13→16:13)
[2019-01-31] MEDS: Acetaminophen 325 MG TAB PO PRN ×2 (09:20→19:35)
[2019-01-31 09:57] LABS: #Eosinphils 0.1 thou/uL (0.0-0.7); #Lymphocytes 3.2 thou/uL (1.20-3.40); #Monocytes 0.7 thou/uL (0.11-0.59); #Neutrophils 5.8 thou/uL (1.40-6.50); %Basophils 0.2 % (0.0-1.0); %Eosinophils 0.6 % (0.0-10.0); %Lymphocytes 32.6 % (21.0-51.0); %Monocytes 6.7 % (0.0-10.0); %Neutrophils 59.8 % (42.0-75.0); Hemoglobin 8.6 g/dL (12.0-16.0); Mean Corpuscular Hemoglobin 28.5 pg (27.0-31.0); Mean Corpuscular Volume 89.1 fL (78.0-98.0); Mean Platelet Volume 7.2 fL (7.4-10.4); Platelet Count 387 thou/uL (130-400); RBC Distribution Width 14.4 % (11.5-14.5); Red Blood Cell (RBC) Count 3.02 mill/uL (4.20-5.40); White Blood Cell (WBC) Count 9.7 thou/uL (4.8-10.8)
[2019-01-31 10:11] LABS: Phosphorus 2.2 mg/dL (2.3-4.7)
[2019-01-31 10:14] LABS: ALT (SGPT) 16 U/L (8-55); AST (SGOT) 23 U/L (5-34); Albumin 3.3 g/dL (3.4-4.8); Alkaline Phosphatase 63 U/L (40-150); Anion Gap 13 mmol/L (10-20); BUN (Urea Nitrogen) 12 mg/dL (9.8-20.1); Bilirubin, Total 0.8 mg/dL (0.2-1.2); Calc. Creatinine Clearance 64 mL/min (70-130); Calcium 9.4 mg/dL (7.8-10.44); Carbon Dioxide 24 mmol/L (23-31); Chloride 101 mmol/L (98-107); Estimated GFR-MDRD Greater than 90; Globulin 3.7 g/dL (2.4-3.5); Glucose 152 mg/dL (83-110); Potassium 3.7 mmol/L (3.5-5.1); Sodium 134 mmol/L (136-145)
--- NOTE | 2019-01-31 12:49 | SPC ---
SPC CVP LINE PICC INITAL >5 History: [History of long-term IV access] Comparison: None. Findings: Patient was brought to specials suite. All questions were answered. Informed consent was ob tained. Timeout performed. The patient's right arm was prepped and draped in normal sterile fashion. Right basilic vein was acce ssed. Over a wire and through a peel-away sheath a 39 cm PICC was placed. Patient tolerated the proce dure well without complication. Impression: Technically successful fluoroscopic and ultrasound guided PICC line placement Fluoroscopy time: 0.4 minutes This area product: 1290 mGy centimeter squared
[2019-01-31] MEDS: K-Phos Neutral 250 MG TAB PO SCH ×2 (13:11→16:57)
--- NOTE | 2019-01-31 14:05 | PDOC.GSPN ---
Surgery Progress Note: Subj - Subjective Narrative: Pt feels good. Denies pain, nausea but not eating much and can't remember when she last had a BM. Fever again last night. WBC OK but slightly increased from last and still w left shift. RLQ TTP resolved but still TTP in LLQ. Min perc drain output. Prealbumin slightly low. A/P) Diverticulitis w abscess, febrile x last [address] w contrast. Surgery Progress Note: Obj - Vital signs Vital signs: Vital Signs - Most Recent Temp Pulse Resp BP Pulse Ox 98.5 F 70 16 101/65 93 L 01/31/19 08:00 01/31/19 08:00 01/31/19 08:00 01/31/19 08:00 01/31/19 08:00 Surgery Progress Note: Results - Labs Result Diagrams: 01/31/19 09:29 01/31/19 09:29 Lab results: Laboratory Results - last 24 hr 01/31/19 01/31/19 01/31/19 09:29 09:29 09:29 WBC 9.7 RBC 3.02 L Hgb 8.6 L Hct 26.9 L MCV 89.1 MCH 28.5 MCHC 32.0 RDW 14.4 Plt Count 387 MPV 7.2 L Neutrophils % 59.8 Lymphocytes % 32.6 Monocytes % 6.7 Eosinophils % 0.6 Basophils % 0.2 Neutrophils # 5.8 Lymphocytes # 3.2 Monocytes # 0.7 H Eosinophils # 0.1 Basophils # 0.0 Sodium 134 L Potassium 3.7 Chloride 101 Carbon Dioxide 24 Anion Gap 13 BUN 12 Creatinine 0.73 Estimated GFR (MDRD) Greater than 90 Glucose 152 H Calcium 9.4 Phosphorus Magnesium 2.0 Total Bilirubin 0.8 AST 23 ALT 16 Alkaline Phosphatase 63 Serum Total Protein 7.0 Albumin 3.3 L Globulin 3.7 H Albumin/Globulin Ratio 0.9 L Prealbumin 12.0 L 01/31/19 09:29 WBC RBC Hgb Hct MCV MCH MCHC RDW Plt Count MPV Neutrophils % Lymphocytes % Monocytes % Eosinophils % Basophils % Neutrophils # Lymphocytes # Monocytes # Eosinophils # Basophils # Sodium Potassium Chloride Carbon Dioxide Anion Gap BUN Creatinine Estimated GFR (MDRD) Glucose Calcium Phosphorus 2.2 L Magnesium Total Bilirubin AST ALT Alkaline Phosphatase Serum Total Protein Albumin Globulin Albumin/Globulin Ratio Prealbumin
--- NOTE | 2019-01-31 14:21 | PRG ---
DATE OF SERVICE: 01/31/2019 SUBJECTIVE: Less pain today. Still not much of an appetite. No respiratory symptoms. OBJECTIVE: VITAL SIGNS: T-max 99.7. She was 101.9 day before yesterday. GENERAL: Awake, alert, and oriented, in no distress. HEENT: Ocular movements are conjugate. LUNGS: Clear to auscultation and percussion. HEART: S1 and S2, regular rate. ABDOMEN: Mild to moderate tenderness, left lower quadrant. No bladder distention. LABORATORY DATA: White cell count 9.7, hemoglobin 8.6, and platelets are 387. Chemistry was not remarkable. Microbiology results noted. Repeat CT done yesterday shows large amount of air in the left lower quadrant. 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 ASSESSMENT: Perforated diverticulitis, now with evidence of vesico-colonic fistula. Probably will need surgical intervention. We will switch her to Zosyn. Discontinue meropenem. Job ID: [id number] [facility]
--- NOTE | 2019-01-31 14:26 | CT ---
"PRELIMINARY REPORT" CT-guided intra-abdominal abscess drainage: 01/27/2019 TECHNIQUE: Signed proxy informed consent obtained. Supine and position CT table. Left lower quadrant skin prepar ed and draped in usual sterile fashion. 1% lidocaine, buffered with sodium bicarbonate, applied super ficially with 25-gauge needle, then deeply with 22-gauge spinal needle under step CT guidance. The re st of the procedure was also performed under step CT guidance. 5 Tristanian 15 cm Yueh catheter advanced from lateral approach into abscess at left lateral pelvic inlet. Stylette removed. 5 mL syringe used to aspirate 2 mm of pus, which was sent to laboratory for culture and sensitivity. 0.035 inch short s tiff Amplatz wire advanced through catheter. The Yueh catheter was exchanged over the guidewire for 8 Tristanian dilator. Dilator was exchanged for 8 Tristanian general purpose drainage catheter over the wire. Stylette and wire were removed. Drainage catheter pigtail loop was formed and locked into place. Cath eter was sutured in place. Patient tolerated well. No complications. IMPRESSION: Successful placement of 8 Tristanian general purpose drainage catheter into left lower quadrant diverticu lar abscess. Transcribed Date/Time: 01/31/2019 2:25 PM
[2019-01-31] MEDS: Dextrose 5 % And 0.9 % NaCl 1,000 ML IV SCH (15:11)
[2019-01-31] MEDS: Vancomycin HCl 1.25 GM in Sodium Chloride 0.9% 250 ML 250 ML IVPB SCH (16:57)
[2019-01-31] MEDS: Donepezil HCl 5 MG TAB PO SCH (19:35)
[2019-01-31] MEDS ORDERED: Apixaban 5 MG TAB PO SCH (21:00)
--- NOTE | 2019-01-31 22:13 | PDOC.PN ---
- Subjective Encounter Start Date: 01/31/19 Encounter Start Time: 13:30 Patient seen and examined for Diverticular abscess. Feels gen weak. Febrile earlier. No overnight events - Objective MAR Reviewed: Yes Vital Signs & Weight: Vital Signs (12 hours) Temp Pulse Resp BP BP BP Pulse Ox 01/31/19 20:00 92 L 01/31/19 19:33 101/58 L 01/31/19 19:18 101.2 F H 70 20 101/58 L 92 L 01/31/19 17:18 98.8 F 69 16 120/70 94 L 01/31/19 12:00 98.2 F 70 16 98/61 93 L Weight Weight 133 lb 5 oz I&O: 01/30/19 01/31/19 02/01/19 06:59 06:59 06:59 Intake Total 1919 2140 1425 Output Total 11 13 0 Balance 1908 2127 1425 Result Diagrams: 01/31/19 09:29 01/31/19 09:29 Phys Exam - Physical Examination Constitutional: NAD Respiratory: no wheezing, no rhonchi Cardiovascular: RRR, no rub Gastrointestinal: soft, positive bowel sounds left sided tenderness, no guarding Neurological: non-focal Dx/Plan - Plan DVT proph w/SCDs 1. Acute Diverticulitis with abscess s/p CT drainage 2. Vesiculo-colic fistula 3. HTN 4. Chronic Afib on anticoag 5. Chronic Anemia PLAN: Cont gentle IVF Hold Eliquis Surgery in AM Cont Meropenem/ Vancomycin AM labs Cont other meds as below Review of Systems - Review of Systems Respiratory: negative: Cough, Dry, Shortness of Breath, Hemoptysis, SOB with Excertion, Pleuritic Pain, Sputum, Wheezing Cardiovascular: negative: chest pain, palpitations, orthopnea, paroxysmal nocturnal dyspnea, edema, light headedness, other - Medications/Allergies Allergies/Adverse Reactions: Allergies Allergy/AdvReac Type Severity Reaction Status Date / Time No Known Drug Allergies Allergy Verified 01/26/19 14:56 Medications: Current Medications Acetaminophen (Tylenol) 650 mg PO Q4H PRN PRN Reason: Headache/Fever/Mild Pain (1-3) Last Admin: 01/31/19 19:35 Dose: 650 mg Aspirin (Aspirin Chewable) 81 mg PO DAILY [facility] Last Admin: 01/31/19 09:12 Dose: 81 mg Carvedilol (Coreg) 6.25 mg PO QAM [facility] Last Admin: 01/31/19 09:12 Dose: 6.25 mg Carvedilol (Coreg) 12.5 mg PO QPM [facility] Last Admin: 01/31/19 19:33 Dose: Not Given Cholecalciferol (Vitamin D3) 1,000 units PO DAILY [facility] Last Admin: 01/31/19 09:12 Dose: 1,000 units Docusate Sodium (Colace) 100 mg PO BID [facility] Last Admin: 01/31/19 19:35 Dose: 100 mg Donepezil HCl (Aricept) 5 mg PO HS [facility] Last Admin: 01/31/19 19:35 Dose: 5 mg Famotidine (Pepcid) 20 mg PO Q12HR [facility] Last Admin: 01/31/19 19:35 Dose: 20 mg Vancomycin HCl 1.25 gm/ Sodium (Chloride) 250 mls @ 166.667 mls/hr IVPB Q24H [facility] Last Admin: 01/31/19 16:57 Dose: 250 mls Meropenem 2 gm/ Sodium (Chloride) 100 mls @ 100 mls/hr IVPB 0800,1600,2359 [facility] Last Admin: 01/31/19 16:13 Dose: 100 mls Dextrose/Sodium Chloride (D5 0.9% Ns) 1,000 mls @ 75 mls/hr IV .[id number] [facility] Last Admin: 01/31/19 15:11 Dose: 1,000 mls Miscellaneous Medication (Pharmacy To Dose) 1 each IVPB PRN PRN PRN Reason: Pharmacy to dose Miscellaneous Medication (Pharmacy To Dose) 1 each IVPB PRN PRN PRN Reason: Pharmacy to dose: VANCO Phosphorus (Kphos Neutral) 500 mg PO TID-WM [facility] Last Admin: 01/31/19 16:57 Dose: 500 mg
[2019-02-01] MEDS: Meropenem 2 GM in Sodium Chloride 0.9% 100 ML IVPB SCH ×3 (00:58→18:24)
[2019-02-01 05:38] LABS: #Monocytes 0.5 thou/uL (0.11-0.59); #Neutrophils 4.3 thou/uL (1.40-6.50); %Basophils 0.2 % (0.0-1.0); %Eosinophils 0.7 % (0.0-10.0); %Monocytes 7.8 % (0.0-10.0); %Neutrophils 62.3 % (42.0-75.0); Hemoglobin 8.1 g/dL (12.0-16.0); Mean Corpuscular HGB CONC 32.1 g/dL (32.0-36.0); Mean Corpuscular Hemoglobin 28.8 pg (27.0-31.0); Platelet Count 345 thou/uL (130-400); RBC Distribution Width 14.1 % (11.5-14.5); Red Blood Cell (RBC) Count 2.81 mill/uL (4.20-5.40)
[2019-02-01 05:39] LABS: Hemoglobin 8.2 g/dL (12.0-16.0); Platelet Count 357 thou/uL (130-400)
[2019-02-01 05:53] LABS: ALT (SGPT) 12 U/L (8-55); AST (SGOT) 16 U/L (5-34); Alkaline Phosphatase 59 U/L (40-150); Anion Gap 10 mmol/L (10-20); BUN (Urea Nitrogen) 9 mg/dL (9.8-20.1); Bilirubin, Total 0.7 mg/dL (0.2-1.2); Calc. Creatinine Clearance 70 mL/min (70-130); Calcium 9.2 mg/dL (7.8-10.44); Carbon Dioxide 29 mmol/L (23-31); Chloride 102 mmol/L (98-107); Estimated GFR-MDRD Greater than 90; Globulin 3.6 g/dL (2.4-3.5); Glucose 114 mg/dL (83-110); Magnesium 2.5 mg/dL (1.6-2.6); Potassium 3.6 mmol/L (3.5-5.1); Protein, Total 6.6 g/dL (6.0-8.3); Sodium 137 mmol/L (136-145)
[2019-02-01] MEDS: Dextrose 5 % And 0.9 % NaCl 1,000 ML IV SCH (06:02)
[2019-02-01] MEDS: Carvedilol 6.25 MG TAB PO SCH ×2 (06:02→20:54)
[2019-02-01] MEDS ORDERED: Fentanyl 250 MCG/5 ML VIAL ONE (07:32)
[2019-02-01] MEDS ORDERED: Bupivacaine/Epinephrine 0.25% 30 ML VIAL ONE ×2 (10:09→12:00)
[2019-02-01] MEDS: K-Phos Neutral 250 MG TAB PO SCH ×3 (11:16→16:20)
[2019-02-01] MEDS: Docusate 100 MG CAP PO SCH ×2 (11:17→20:53)
[2019-02-01] MEDS: Famotidine 20 MG TAB PO SCH ×2 (11:18→20:54)
--- NOTE | 2019-02-01 13:00 | PDOC.PN ---
- Subjective Encounter Start Date: 02/01/19 Encounter Start Time: 08:30 -: old records requested/rev Patient seen and examined. No new complaints. No overnight events - Objective MAR Reviewed: Yes Vital Signs & Weight: Vital Signs (12 hours) Temp Pulse Resp BP BP BP Pulse Ox 02/01/19 07:30 93 L 02/01/19 07:15 99.6 F 70 16 94/54 L 93 L 02/01/19 06:02 135/74 02/01/19 04:00 98.8 F 71 20 135/74 95 Weight Weight 133 lb 5 oz I&O: 01/31/19 02/01/19 02/02/19 06:59 06:59 06:59 Intake Total 2140 2565 Output Total 13 0 Balance 2127 2565 Result Diagrams: 02/01/19 04:45 02/01/19 04:45 Phys Exam - Physical Examination Constitutional: NAD HEENT: PERRLA, moist MMs, sclera anicteric Neck: no JVD, supple Respiratory: no wheezing, no rales, no rhonchi Cardiovascular: RRR, no significant murmur, no rub Gastrointestinal: soft, no distention, positive bowel sounds tenerness lower part Musculoskeletal: no edema, pulses present Neurological: non-focal, normal sensation Lymphatic: no nodes Psychiatric: normal affect Dx/Plan (1) Colonic diverticular abscess Code(s): K57.20 - DVTRCLI OF LG INT W PERFORATION AND ABSCESS W/O BLEEDING Status: Acute Comment: s/p IR-guided drainage. 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 Review of Systems - Review of Systems ENT: negative: Ear Pain, Ear Discharge, Nose Pain, Nose Discharge, Nose Congestion, Mouth Pain, Mouth Swelling, Throat Pain, Throat Swelling, Other Respiratory: negative: Cough, Dry, Shortness of Breath, Hemoptysis, SOB with Excertion, Pleuritic Pain, Sputum, Wheezing Cardiovascular: negative: chest pain, palpitations, orthopnea, paroxysmal nocturnal dyspnea, edema, light headedness, other Gastrointestinal: Abdominal Pain. negative: Nausea, Vomiting, Diarrhea, Constipation, Melena, Hematochezia, Other Genitourinary: negative: Dysuria, Frequency, Incontinence, Hematuria, Retention , Other Musculoskeletal: negative: Neck Pain, Shoulder Pain, Arm Pain, Back Pain, Hand Pain, Leg Pain, Foot Pain, Other - Medications/Allergies Allergies/Adverse Reactions: Allergies Allergy/AdvReac Type Severity Reaction Status Date / Time No Known Drug Allergies Allergy Verified 01/26/19 14:56 Medications: Current Medications Acetaminophen (Tylenol) 650 mg PO Q4H PRN PRN Reason: Headache/Fever/Mild Pain (1-3) Last Admin: 01/31/19 19:35 Dose: 650 mg Aspirin (Aspirin Chewable) 81 mg PO DAILY [facility] Last Admin: 01/31/19 09:12 Dose: 81 mg Carvedilol (Coreg) 6.25 mg PO QAM [facility] Last Admin: 02/01/19 06:02 Dose: 6.25 mg Carvedilol (Coreg) 12.5 mg PO QPM [facility] Last Admin: 01/31/19 19:33 Dose: Not Given Cholecalciferol (Vitamin D3) 1,000 units PO DAILY [facility] Last Admin: 02/01/19 11:17 Dose: Not Given Docusate Sodium (Colace) 100 mg PO BID [facility] Last Admin: 02/01/19 11:17 Dose: Not Given Donepezil HCl (Aricept) 5 mg PO HS [facility] Last Admin: 01/31/19 19:35 Dose: 5 mg Famotidine (Pepcid) 20 mg PO Q12HR [facility] Last Admin: 02/01/19 11:18 Dose: Not Given Vancomycin HCl 1.25 gm/ Sodium (Chloride) 250 mls @ 166.667 mls/hr IVPB Q24H [facility] Last Admin: 01/31/19 16:57 Dose: 250 mls Meropenem 2 gm/ Sodium (Chloride) 100 mls @ 100 mls/hr IVPB 0800,1600,2359 [facility] Last Admin: 02/01/19 11:16 Dose: Not Given Dextrose/Sodium Chloride (D5 0.9% Ns) 1,000 mls @ 75 mls/hr IV .[id number] [facility] Last Admin: 02/01/19 06:02 Dose: 1,000 mls Miscellaneous Medication (Pharmacy To Dose) 1 each IVPB PRN PRN PRN Reason: Pharmacy to dose Miscellaneous Medication (Pharmacy To Dose) 1 each IVPB PRN PRN PRN Reason: Pharmacy to dose: VANCO Phosphorus (Kphos Neutral) 500 mg PO TID-WM [facility] Last Admin: 02/01/19 11:16 Dose: Not Given
[2019-02-01] MEDS ORDERED: Ondansetron HCl/PF 4 MG/2 ML Vial IVP PRN (13:26)
[2019-02-01] MEDS ORDERED: Promethazine HCl 25 MG/ML VIAL IM PRN (13:26)
[2019-02-01] MEDS ORDERED: Promethazine HCl 25 MG/ML VIAL SLOW IVP PRN (13:26)
[2019-02-01] MEDS ORDERED: Ondansetron PF 4 MG/2 ML Vial ONE (14:49)
[2019-02-01] MEDS ORDERED: Glycopyrrolate 0.2 MG/ML 5 ML SYRINGE ONE (14:49)
[2019-02-01] MEDS ORDERED: PHENYLEPHRINE-NS 100 MCG/ML 10 ML SYRINGE ONE (14:49)
[2019-02-01] MEDS ORDERED: Dexamethasone 20 MG/5 ML VIAL ONE (14:49)
[2019-02-01] MEDS ORDERED: Rocuronium Bromide 10 MG/ML (10ML VIAL) ONE (14:49)
[2019-02-01] MEDS ORDERED: PROPOFOL 200 MG/20 ML VIAL ONE (14:49)
[2019-02-01] MEDS ORDERED: Lidocaine 1% PF 5 ML VIAL ONE (14:49)
[2019-02-01 16:20] LABS: Vancomycin, Trough 10.3 ug/mL
[2019-02-01] MEDS: Vancomycin HCl 1.25 GM in Sodium Chloride 0.9% 250 ML 250 ML IVPB SCH (16:21)
--- NOTE | 2019-02-01 17:09 | EKG ---
Test Reason : PREOP Blood Pressure : / mmHG Vent. Rate : 070 BPM Atrial Rate : 070 BPM P-R Int : 094 ms QRS Dur : 090 ms QT Int : 408 ms P-R-T Axes : 080 043 096 degrees QTc Int : 440 ms Electronic atrial pacemaker Nonspecific T wave abnormality Abnormal ECG When compared with ECG of 15-JUN-2013 12:31, Electronic atrial pacemaker has replaced Sinus rhythm T wave inversion no longer evident in Lateral leads Confirmed by Jammie BAKER ([id number]) on 02/01/2019 5:09:00 PM Referred By: ABDELRAHMAN Confirmed By:Jammie BAKER
[2019-02-01] MEDS: Donepezil HCl 5 MG TAB PO SCH (20:53)
[2019-02-01] MEDS ORDERED: Morphine 4 MG/ML VIAL SLOW IVP PRN (22:40)
[2019-02-02] MEDS: Acetaminophen 1,000 MG in Premix Bag 1 BAG IVPB SCH ×5 (01:57→23:40)
[2019-02-02] MEDS: Meropenem 2 GM in Sodium Chloride 0.9% 100 ML IVPB SCH ×3 (02:06→17:48)
[2019-02-02] MEDS: Dextrose 5 % And 0.9 % NaCl 1,000 ML IV SCH ×3 (02:29→20:12)
[2019-02-02] MEDS: K-Phos Neutral 250 MG TAB PO SCH ×3 (09:40→17:51)
[2019-02-02] MEDS: Famotidine 20 MG TAB PO SCH ×2 (09:40→20:06)
[2019-02-02] MEDS: Carvedilol 6.25 MG TAB PO SCH ×2 (09:41→20:06)
[2019-02-02] MEDS: Docusate 100 MG CAP PO SCH ×2 (09:41→20:06)
--- NOTE | 2019-02-02 13:17 | PDOC.PN ---
- Subjective Encounter Start Date: 02/02/19 Encounter Start Time: 08:30 -: old records requested/rev Patient seen and examined. No new complaints. No overnight events - Objective MAR Reviewed: Yes Vital Signs & Weight: Vital Signs (12 hours) Temp Pulse Resp BP BP BP Pulse Ox 02/02/19 11:17 98.3 F 69 20 128/76 98 02/02/19 09:41 122/65 02/02/19 07:27 98.5 F 70 16 114/68 97 02/02/19 03:30 98.8 F 69 16 101/62 96 Weight Admit Weight 133 lb 4.8 oz Weight 133 lb 4.8 oz I&O: 02/01/19 02/02/19 02/03/19 06:59 06:59 06:59 Intake Total 2565 1325 Output Total 0 1085 Balance 2565 240 Result Diagrams: 02/01/19 04:45 02/01/19 04:45 Additional Labs: Accuchecks 02/01/19 13:26 POC Glucose 161 H Phys Exam - Physical Examination Constitutional: NAD HEENT: PERRLA, sclera anicteric NG tube+ Neck: no JVD, supple Respiratory: no wheezing, no rales, no rhonchi Cardiovascular: RRR, no significant murmur, no rub Gastrointestinal: soft, non-tender, no distention, positive bowel sounds colostomy+ Musculoskeletal: no edema, pulses present Neurological: non-focal, normal sensation Lymphatic: no nodes Psychiatric: normal affect Skin: no rash, normal turgor Dx/Plan (1) Colonic diverticular abscess Code(s): K57.20 - DVTRCLI OF LG INT W PERFORATION AND ABSCESS W/O BLEEDING Status: Acute Comment: s/p IR-guided drainage. 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 - VESICOINTESTINAL FISTULA Status: Acute (4) Afib Code(s): I48.91 - UNSPECIFIED ATRIAL FIBRILLATION Status: Chronic Comment: (5) Anemia, normocytic normochromic Code(s): D64.9 - ANEMIA, UNSPECIFIED Status: Chronic (6) Chronic anticoagulation Code(s): Z79.01 - [employer] IN[employer]CTOR (CURRENT) USE OF ANTICOAGULANTS Status: Chronic (7) Dementia Code(s): F03.90 - UNSPECIFIED DEMENTIA WITHOUT BEHAVIORAL DISTURBANCE Status: Chronic (8) HTN (hypertension) Code(s): I10 - ESSENTIAL (PRIMARY) HYPERTENSION Status: Chronic Comment: controlled - Plan cont current plan of care, continue antibiotics * continue meropenam and vancomycin * post operative care as per surgeon * medication reviewed as below * symptomatic treatment. Review of Systems - Review of Systems ENT: negative: Ear Pain, Ear Discharge, Nose Pain, Nose Discharge, Nose Congestion, Mouth Pain, Mouth Swelling, Throat Pain, Throat Swelling, Other Respiratory: negative: Cough, Dry, Shortness of Breath, Hemoptysis, SOB with Excertion, Pleuritic Pain, Sputum, Wheezing Cardiovascular: negative: chest pain, palpitations, orthopnea, paroxysmal nocturnal dyspnea, edema, light headedness, other Gastrointestinal: negative: Nausea, Vomiting, Abdominal Pain, Diarrhea, Constipation, Melena, Hematochezia, Other Genitourinary: negative: Dysuria, Frequency, Incontinence, Hematuria, Retention , Other Musculoskeletal: negative: Neck Pain, Shoulder Pain, Arm Pain, Back Pain, Hand Pain, Leg Pain, Foot Pain, Other Skin: negative: Rash, Lesions, Martin, Bruising, Other - Medications/Allergies Allergies/Adverse Reactions: Allergies Allergy/AdvReac Type Severity Reaction Status Date / Time No Known Drug Allergies Allergy Verified 01/26/19 14:56 Medications: Current Medications Acetaminophen (Tylenol) 650 mg PO Q4H PRN PRN Reason: Headache/Fever/Mild Pain (1-3) Last Admin: 01/31/19 19:35 Dose: 650 mg Aspirin (Aspirin Chewable) 81 mg PO DAILY [facility] Last Admin: 01/31/19 09:12 Dose: 81 mg Carvedilol (Coreg) 6.25 mg PO QAM [facility] Last Admin: 02/02/19 09:41 Dose: 6.25 mg Carvedilol (Coreg) 12.5 mg PO QPM [facility] Last Admin: 02/01/19 20:54 Dose: 12.5 mg Cholecalciferol (Vitamin D3) 1,000 units PO DAILY [facility] Last Admin: 02/02/19 09:40 Dose: 1,000 units Docusate Sodium (Colace) 100 mg PO BID [facility] Last Admin: 02/02/19 09:41 Dose: Not Given Donepezil HCl (Aricept) 5 mg PO HS [facility] Last Admin: 02/01/19 20:53 Dose: 5 mg Famotidine (Pepcid) 20 mg PO Q12HR [facility] Last Admin: 02/02/19 09:40 Dose: 20 mg Vancomycin HCl 1.25 gm/ Sodium (Chloride) 250 mls @ 166.667 mls/hr IVPB Q24H [facility] Last Admin: 02/01/19 16:21 Dose: 250 mls Dextrose/Sodium Chloride (D5 0.9% Ns) 1,000 mls @ 75 mls/hr IV .[id number] [facility] Last Admin: 02/02/19 07:30 Dose: Not Given Meropenem 2 gm/ Sodium (Chloride) 100 mls @ 100 mls/hr IVPB 0200,1000,1800 [facility] Last Admin: 02/02/19 10:13 Dose: 100 mls Acetaminophen 1,000 mg/ Device 100 mls @ 400 mls/hr IVPB Q6HR [facility] Stop: 02/02/19 23:59 Last Admin: 02/02/19 11:30 Dose: 100 mls Miscellaneous Medication (Pharmacy To Dose) 1 each IVPB PRN PRN PRN Reason: Pharmacy to dose Miscellaneous Medication (Pharmacy To Dose) 1 each IVPB PRN PRN PRN Reason: Pharmacy to dose: VANCO Morphine Sulfate (Morphine) 2 mg SLOW IVP Q1H PRN PRN Reason: Moderate Pain (4-6) Morphine Sulfate (Morphine) 4 mg SLOW IVP Q1H PRN PRN Reason: Severe Pain (7-10) Phosphorus (Kphos Neutral) 500 mg PO TID-WM [facility] Last Admin: 02/02/19 11:30 Dose: Not Given
--- NOTE | 2019-02-02 14:00 | PRG ---
DATE OF SERVICE: 02/01/2019 SUBJECTIVE: Ms. Perez had a diversion, colostomy and she is postoperative now. She has the Venti mask on. She is otherwise feeling okay. Mild pain at the operative site. OBJECTIVE: VITAL SIGNS: Show T-max 99.8 and blood pressure 120/76. GENERAL: Awake, alert, and oriented. LUNGS: Clear. HEART: S1 and S2, regular rate. ABDOMEN: Soft with mild tenderness. Colostomy in place and she has an indwelling Alarcon catheter. LABORATORY DATA: White cell count 7.0, hemoglobin 8.1, platelets 345. Creatinine 0.66. Liver profile normal. ASSESSMENT AND DISCUSSION: Perforated diverticulitis with colovesical fistula, status post diversion. The patient to continue on antimicrobials and eventually need resection of the involved segment and repair of the bladder. Job ID: [id number]
[2019-02-02] MEDS: Vancomycin HCl 1.25 GM in Sodium Chloride 0.9% 250 ML 250 ML IVPB SCH (15:28)
[2019-02-02] MEDS: Donepezil HCl 5 MG TAB PO SCH (20:06)
--- NOTE | 2019-02-02 20:31 | PDOC.GSPN ---
Surgery Progress Note: Subj - Subjective Narrative: Feels ok, no nausea, pain tolerable. Colostomy producting flatus. VS and labs ok, incisions and ostomy look good. A/P) Doing well s/p colostomy and drainage abscess. NG clamped and DC if residual low. If kayla ice chips will give clears tomorrow. Surgery Progress Note: Obj - Vital signs Vital signs: Vital Signs - Most Recent Temp Pulse Resp BP Pulse Ox 98.3 F 70 18 109/67 98 02/02/19 15:05 02/02/19 15:05 02/02/19 15:05 02/02/19 20:06 02/02/19 15:05 Surgery Progress Note: Results - Labs Result Diagrams: 02/01/19 04:45 02/01/19 04:45
[2019-02-03] MEDS: Meropenem 2 GM in Sodium Chloride 0.9% 100 ML IVPB SCH ×3 (01:17→17:09)
[2019-02-03 08:27] LABS: Calc. Creatinine Clearance 88 mL/min (70-130); Estimated GFR-MDRD Greater than 90
[2019-02-03] MEDS: K-Phos Neutral 250 MG TAB PO SCH ×3 (08:31→15:38)
[2019-02-03] MEDS: Carvedilol 6.25 MG TAB PO SCH ×2 (08:32→22:08)
[2019-02-03] MEDS: Famotidine 20 MG TAB PO SCH ×2 (08:32→21:25)
[2019-02-03] MEDS: Docusate 100 MG CAP PO SCH ×3 (08:32→21:25)
[2019-02-03] MEDS: Dextrose 5 % And 0.9 % NaCl 1,000 ML IV SCH (08:33)
[2019-02-03 09:45] LABS: Hemoglobin 9.3 g/dL (12.0-16.0); Platelet Count 397 thou/uL (130-400)
[2019-02-03] MEDS: Morphine 4 MG/ML VIAL SLOW IVP PRN (12:39)
--- NOTE | 2019-02-03 12:44 | PDOC.PN ---
- Subjective Encounter Start Date: 02/03/19 Encounter Start Time: 08:00 Patient seen and examined. No new complaints. No overnight events - Objective MAR Reviewed: Yes Vital Signs & Weight: Vital Signs (12 hours) Temp Pulse Resp BP BP Pulse Ox 02/03/19 10:57 98.5 F 70 18 99/63 99 02/03/19 08:32 111/74 02/03/19 08:29 97 02/03/19 07:35 98.6 F 70 16 111/74 97 02/03/19 04:00 97.7 F 70 20 99/63 98 Weight Admit Weight 133 lb 4.8 oz Weight 133 lb 4.8 oz I&O: 02/02/19 02/03/19 02/04/19 06:59 06:59 06:59 Intake Total 1325 2340 300 Output Total 1085 1375 Balance 240 965 300 Result Diagrams: 02/03/19 09:33 02/03/19 07:36 Phys Exam - Physical Examination Constitutional: NAD HEENT: PERRLA, moist MMs, sclera anicteric Neck: no JVD, supple Respiratory: no wheezing, no rales, no rhonchi Cardiovascular: RRR, no significant murmur, no rub Gastrointestinal: soft, no distention, positive bowel sounds colostomy+ Musculoskeletal: no edema, pulses present Neurological: non-focal, normal sensation Lymphatic: no nodes Psychiatric: normal affect, A&O x 3 Skin: no rash, normal turgor Dx/Plan (1) Colonic diverticular abscess Code(s): K57.20 - DVTRCLI OF LG INT W PERFORATION AND ABSCESS W/O BLEEDING Status: Acute Comment: s/p IR-guided drainage. 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 - VESICOINTESTINAL FISTULA Status: Acute (4) Afib Code(s): I48.91 - UNSPECIFIED ATRIAL FIBRILLATION Status: Chronic Comment: (5) Anemia, normocytic normochromic Code(s): D64.9 - ANEMIA, UNSPECIFIED Status: Chronic (6) Chronic anticoagulation Code(s): Z79.01 - [employer] (CURRENT) USE OF ANTICOAGULANTS Status: Chronic (7) Dementia Code(s): F03.90 - UNSPECIFIED DEMENTIA WITHOUT BEHAVIORAL DISTURBANCE Status: Chronic (8) HTN (hypertension) Code(s): I10 - ESSENTIAL (PRIMARY) HYPERTENSION Status: Chronic Comment: controlled - Plan cont current plan of care * medication reviewed as below * symptomatic treatment * continue post operative care * stable and improving. Review of Systems - Review of Systems ENT: negative: Ear Pain, Ear Discharge, Nose Pain, Nose Discharge, Nose Congestion, Mouth Pain, Mouth Swelling, Throat Pain, Throat Swelling, Other Respiratory: negative: Cough, Dry, Shortness of Breath, Hemoptysis, SOB with Excertion, Pleuritic Pain, Sputum, Wheezing Cardiovascular: negative: chest pain, palpitations, orthopnea, paroxysmal nocturnal dyspnea, edema, light headedness, other Gastrointestinal: negative: Nausea, Vomiting, Abdominal Pain, Diarrhea, Constipation, Melena, Hematochezia, Other Genitourinary: negative: Dysuria, Frequency, Incontinence, Hematuria, Retention , Other Musculoskeletal: negative: Neck Pain, Shoulder Pain, Arm Pain, Back Pain, Hand Pain, Leg Pain, Foot Pain, Other - Medications/Allergies Allergies/Adverse Reactions: Allergies Allergy/AdvReac Type Severity Reaction Status Date / Time No Known Drug Allergies Allergy Verified 01/26/19 14:56 Medications: Current Medications Acetaminophen (Tylenol) 650 mg PO Q4H PRN PRN Reason: Headache/Fever/Mild Pain (1-3) Last Admin: 01/31/19 19:35 Dose: 650 mg Aspirin (Aspirin Chewable) 81 mg PO DAILY [facility] Last Admin: 01/31/19 09:12 Dose: 81 mg Carvedilol (Coreg) 6.25 mg PO QAM [facility] Last Admin: 02/03/19 08:32 Dose: 6.25 mg Carvedilol (Coreg) 12.5 mg PO QPM [facility] Last Admin: 02/02/19 20:06 Dose: 12.5 mg Cholecalciferol (Vitamin D3) 1,000 units PO DAILY [facility] Last Admin: 02/03/19 08:31 Dose: 1,000 units Docusate Sodium (Colace) 100 mg PO BID [facility] Last Admin: 02/03/19 08:37 Dose: Not Given Donepezil HCl (Aricept) 5 mg PO HS [facility] Last Admin: 02/02/19 20:06 Dose: 5 mg Famotidine (Pepcid) 20 mg PO Q12HR [facility] Last Admin: 02/03/19 08:32 Dose: 20 mg Vancomycin HCl 1.25 gm/ Sodium (Chloride) 250 mls @ 166.667 mls/hr IVPB Q24H [facility] Last Admin: 02/02/19 15:28 Dose: 250 mls Dextrose/Sodium Chloride (D5 0.9% Ns) 1,000 mls @ 75 mls/hr IV .[id number] [facility] Last Admin: 02/03/19 08:33 Dose: 1,000 mls Meropenem 2 gm/ Sodium (Chloride) 100 mls @ 100 mls/hr IVPB 0200,1000,1800 [facility] Last Admin: 02/03/19 10:29 Dose: 100 mls Miscellaneous Medication (Pharmacy To Dose) 1 each IVPB PRN PRN PRN Reason: Pharmacy to dose Miscellaneous Medication (Pharmacy To Dose) 1 each IVPB PRN PRN PRN Reason: Pharmacy to dose: VANCO Morphine Sulfate (Morphine) 2 mg SLOW IVP Q1H PRN PRN Reason: Moderate Pain (4-6) Morphine Sulfate (Morphine) 4 mg SLOW IVP Q1H PRN PRN Reason: Severe Pain (7-10) Last Admin: 02/03/19 12:39 Dose: 4 mg Phosphorus (Kphos Neutral) 500 mg PO TID-[facility] Last Admin: 02/03/19 10:57 Dose: Not Given
[2019-02-03 15:20] LABS: Vancomycin, Trough 11.2 ug/mL
[2019-02-03] MEDS: Vancomycin HCl 1.25 GM in Sodium Chloride 0.9% 250 ML 250 ML IVPB SCH (15:38)
--- NOTE | 2019-02-03 17:42 | PDOC.GSPN ---
Surgery Progress Note: Subj - Subjective Narrative: She states that she is feeling okay and that her pain is controlled. Her colostomy has gas in the bag but no stool output yet. She denies any nausea. Her wound is clean and the VAC was replaced today. She doesn't have much appetite and her nurse states she is only taking about 25% of her meal. Her incisions and her colostomy looked healthy. Assessment/plan: Doing well from a surgical standpoint status post colostomy and drainage of abscess but with poor oral intake and pre-existing weight loss and debilitation. I have ordered supplements and a nutrition consult. Her prealbumin is slightly low and if her oral intake does not improve she may require some additional support with TPN. Dr. Bloom will be following her over the weekend. Surgery Progress Note: Obj - Vital signs Vital signs: Vital Signs - Most Recent Temp Pulse Resp BP Pulse Ox 98.8 F 64 14 102/64 97 02/03/19 15:00 02/03/19 15:00 02/03/19 15:00 02/03/19 15:00 02/03/19 15:00 Surgery Progress Note: Results - Labs Result Diagrams: 02/03/19 09:33 02/03/19 07:36 Lab results: Laboratory Results - last 24 hr 02/03/19 02/03/19 02/03/19 07:36 09:33 14:55 Hgb 9.3 L Hct 29.5 L Plt Count 397 Creatinine 0.53 L Estimated GFR (MDRD) Greater than 90 Vancomycin Trough 11.2
--- NOTE | 2019-02-03 18:46 | OP ---
DATE OF PROCEDURE: 02/01/2019 PROCEDURES PERFORMED: I and D of abdominal wall abscess, drainage of the intraabdominal abscess, and laparoscopic ascending colostomy. PREOPERATIVE DIAGNOSES: Diverticulitis with diverticular abscess, abdominal wall abscess, and colovesical fistula. HISTORY: Ms. Perez is a 73-year-old woman, who presented to the hospital with diverticulitis and fairly large peridiverticular abscess containing gas and fluid. She underwent percutaneous drainage but continued to have fevers and pain in the left lower quadrant, so a CT was obtained which showed development of colovesical fistula with gas and contrast in the bladder as well as a large amount of gas in the subcutaneous tissues at the site of her percutaneous drain. Recommendation was made to proceed to the operating room for diverting colostomy and drainage of abscess. DESCRIPTION OF PROCEDURE: After informed consent was obtained and appropriate preoperative antibiotics continued, the patient was taken to the operating room. She was placed in supine position and general endotracheal anesthesia was administered. She was prepped and draped in a standard sterile fashion and a skin incision was made along the most dependent area of the swollen portion of the left anterior abdominal wall. Dissection was carried down to the abscess cavity which was dissected by gas, but did not have any significant odor or drainage. There was no fluid within the wound. The wound was completely opened up by digital dissection and packed with sterile gauze and that portion of the abdominal wall was excluded from the field. Local anesthesia was infused to the skin and subcutaneous tissues at the level of the umbilicus and a skin incision was made. The fascia was elevated and Veress needle placed into the abdominal cavity. Carbon dioxide gas insufflated to an intraabdominal pressure of 15, which the patient tolerated well. A ClearView port was advanced into the abdominal cavity, which was carefully examined. There was no evidence of Veress needle or trocar injury. No significant adhesions in the location of the trocar. The patient did have dense adhesions in the left lower quadrant including a loop of small bowel and the sigmoid colon. No significant intraabdominal fluid was seen. Additional dissecting trocars were placed. Attempts made to mobilize the small bowel off the underlying sigmoid colon, but the adhesions were very dense and it was felt that this would only cause potential for further injury to the bowel, so the adhesions were left in place. This did not appear to be obstructing in any way. The peridiverticular abscess was visible, so the peritoneum was opened over this area immediately adjacent to the sigmoid colon. A YADIRA drain was placed into the cavity, where the percutaneous drain was visible. Since the sigmoid colon was densely adherent to the abdominal wall, it was not felt that the patient had enough laxity in her colon to allow loop colostomy. Therefore, the decision was made to place a descending colostomy in the left upper quadrant away from the side of the abdominal abscess. The colon was mobilized medially by incising the white line of Toldt and mobilizing it through the avascular plane. The window was then created through the mesentery of the noninflamed descending colon immediately proximal to the inflamed segment, which was adherent to the abdominal wall. Once a window was created, a laparoscopic bowel stapler was advanced through the right lower quadrant trocar and the bowel was divided. A circular incision was made around the left upper quadrant trocar and dissection carried down to the fascia, which was incised. The underlying muscles were split and the ascending colon drawn out through this incision. This was secured to the fascia circumferentially with Lembert sutures and the right lower quadrant removed and hemostasis verified. The YADIRA drain was secured to the skin and laparoscopic trocar sites were irrigated and closed. Attention was then turned to maturation of the colostomy. The staple line was excised and a huslia colostomy created with circumferential sutures to the edges of bowel wall, Lembert sutures just proximal to the edge and securing this to the dermis circumferentially. The bowel was entirely viable and patent through the fascia. Colostomy appliance was placed. The previous percutaneous drain was removed and the Wound Care Team was called to the operating room for placement of a VAC drain into the left lower quadrant incision. Estimated blood loss was minimal. There were no complications. There were no specimens. Job ID: [id number]
[2019-02-03] MEDS: Donepezil HCl 5 MG TAB PO SCH (21:25)
[2019-02-04] MEDS: Dextrose 5 % And 0.9 % NaCl 1,000 ML IV SCH ×2 (01:27→13:02)
[2019-02-04] MEDS: Meropenem 2 GM in Sodium Chloride 0.9% 100 ML IVPB SCH ×4 (04:47→20:48)
[2019-02-04] MEDS ORDERED: Midazolam HCl 5 mg/5 ml Vial ONE (07:52)
[2019-02-04] MEDS ORDERED: Fentanyl 250 MCG/5 ML VIAL ONE (07:52)
[2019-02-04] MEDS ORDERED: Nitroglycerin 50 MG/250 ML BOT 0 ML ONE (07:55)
[2019-02-04] MEDS ORDERED: EPINEPHrine 1 MG/ML AMP ONE (07:55)
[2019-02-04] MEDS ORDERED: Vecuronium 10 MG VIAL ONE (07:55)
[2019-02-04] MEDS: Acetaminophen 325 MG TAB PO PRN (08:55)
[2019-02-04] MEDS: Carvedilol 6.25 MG TAB PO SCH ×2 (08:56→16:21)
[2019-02-04] MEDS: Famotidine 20 MG TAB PO SCH ×2 (08:56→21:06)
[2019-02-04] MEDS: K-Phos Neutral 250 MG TAB PO SCH ×3 (08:56→16:21)
[2019-02-04] MEDS: Docusate 100 MG CAP PO SCH ×2 (08:57→21:06)
--- NOTE | 2019-02-04 10:23 | PDOC.PN ---
- Subjective Encounter Start Date: 02/04/19 Encounter Start Time: 08:30 Patient seen and examined. No new complaints. No overnight events - Objective MAR Reviewed: Yes Vital Signs & Weight: Vital Signs (12 hours) Temp Pulse Resp BP BP Pulse Ox 02/04/19 08:56 107/69 02/04/19 08:00 98.6 F 70 16 107/69 96 02/04/19 04:00 98.2 F 73 16 93/62 97 02/04/19 00:00 98.6 F 70 16 99/65 97 Weight Admit Weight 133 lb 4.8 oz Weight 133 lb 4.8 oz I&O: 02/03/19 02/04/19 02/05/19 06:59 06:59 06:59 Intake Total 2340 2200 Output Total 1375 1355 Balance 965 845 Result Diagrams: 02/03/19 09:33 02/03/19 07:36 Phys Exam - Physical Examination Constitutional: NAD HEENT: PERRLA, moist MMs, sclera anicteric Neck: no JVD, supple Respiratory: no wheezing, no rales, no rhonchi Cardiovascular: RRR, no significant murmur, no rub Gastrointestinal: soft, non-tender, no distention, positive bowel sounds colostomy+ Musculoskeletal: no edema, pulses present Neurological: non-focal, normal sensation Lymphatic: no nodes Psychiatric: normal affect Skin: no rash, normal turgor Dx/Plan (1) Colonic diverticular abscess Code(s): K57.20 - DVTRCLI OF LG INT W PERFORATION AND ABSCESS W/O BLEEDING Status: Acute Comment: s/p IR-guided drainage. 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 - VESICOINTESTINAL FISTULA Status: Acute (4) Afib Code(s): I48.91 - UNSPECIFIED ATRIAL FIBRILLATION Status: Chronic Comment: (5) Anemia, normocytic normochromic Code(s): D64.9 - ANEMIA, UNSPECIFIED Status: Chronic (6) Chronic anticoagulation Code(s): Z79.01 - [employer] (CURRENT) USE OF ANTICOAGULANTS Status: Chronic (7) Dementia Code(s): F03.90 - UNSPECIFIED DEMENTIA WITHOUT BEHAVIORAL DISTURBANCE Status: Chronic (8) HTN (hypertension) Code(s): I10 - ESSENTIAL (PRIMARY) HYPERTENSION Status: Chronic Comment: controlled - Plan cont current plan of care, continue antibiotics, PT/OT, out of bed/ambulate, DVT proph w/SCDs * medication reviewed as below * symptomatic treatment * diet advancement as per surgeon * pain controlled * stable medically. Review of Systems - Review of Systems ENT: negative: Ear Pain, Ear Discharge, Nose Pain, Nose Discharge, Nose Congestion, Mouth Pain, Mouth Swelling, Throat Pain, Throat Swelling, Other Respiratory: negative: Cough, Dry, Shortness of Breath, Hemoptysis, SOB with Excertion, Pleuritic Pain, Sputum, Wheezing Cardiovascular: negative: chest pain, palpitations, orthopnea, paroxysmal nocturnal dyspnea, edema, light headedness, other Gastrointestinal: negative: Nausea, Vomiting, Abdominal Pain, Diarrhea, Constipation, Melena, Hematochezia, Other Genitourinary: negative: Dysuria, Frequency, Incontinence, Hematuria, Retention , Other Musculoskeletal: negative: Neck Pain, Shoulder Pain, Arm Pain, Back Pain, Hand Pain, Leg Pain, Foot Pain, Other - Medications/Allergies Allergies/Adverse Reactions: Allergies Allergy/AdvReac Type Severity Reaction Status Date / Time No Known Drug Allergies Allergy Verified 01/26/19 14:56 Medications: Current Medications Acetaminophen (Tylenol) 650 mg PO Q4H PRN PRN Reason: Headache/Fever/Mild Pain (1-3) Last Admin: 02/04/19 08:55 Dose: 650 mg Aspirin (Aspirin Chewable) 81 mg PO DAILY [facility] Last Admin: 01/31/19 09:12 Dose: 81 mg Carvedilol (Coreg) 6.25 mg PO BID-[facility] Last Admin: 02/04/19 08:56 Dose: 6.25 mg Cholecalciferol (Vitamin D3) 1,000 units PO DAILY [facility] Last Admin: 02/04/19 08:56 Dose: 1,000 units Docusate Sodium (Colace) 100 mg PO BID [facility] Last Admin: 02/04/19 08:57 Dose: 100 mg Donepezil HCl (Aricept) 5 mg PO HS [facility] Last Admin: 02/03/19 21:25 Dose: 5 mg Famotidine (Pepcid) 20 mg PO Q12HR [facility] Last Admin: 02/04/19 08:56 Dose: 20 mg Vancomycin HCl 1.25 gm/ Sodium (Chloride) 250 mls @ 166.667 mls/hr IVPB Q24H [facility] Last Admin: 02/03/19 15:38 Dose: 250 mls Dextrose/Sodium Chloride (D5 0.9% Ns) 1,000 mls @ 75 mls/hr IV .[id number] [facility] Last Admin: 02/04/19 01:27 Dose: 1,000 mls Meropenem 2 gm/ Sodium (Chloride) 100 mls @ 100 mls/hr IVPB 0400,1200,2000 [facility] Last Admin: 02/04/19 04:47 Dose: 100 mls Miscellaneous Medication (Pharmacy To Dose) 1 each IVPB PRN PRN PRN Reason: Pharmacy to dose Miscellaneous Medication (Pharmacy To Dose) 1 each IVPB PRN PRN PRN Reason: Pharmacy to dose: VANCO Morphine Sulfate (Morphine) 2 mg SLOW IVP Q1H PRN PRN Reason: Moderate Pain (4-6) Morphine Sulfate (Morphine) 4 mg SLOW IVP Q1H PRN PRN Reason: Severe Pain (7-10) Last Admin: 02/03/19 12:39 Dose: 4 mg Phosphorus (Kphos Neutral) 500 mg PO TID-[facility] Last Admin: 02/04/19 08:56 Dose: 500 mg
[2019-02-04] MEDS: Vancomycin HCl 1.25 GM in Sodium Chloride 0.9% 250 ML 250 ML IVPB SCH (16:28)
[2019-02-04] MEDS: Donepezil HCl 5 MG TAB PO SCH (21:06)
[2019-02-05] MEDS: Meropenem 2 GM in Sodium Chloride 0.9% 100 ML IVPB SCH ×3 (04:12→20:19)
[2019-02-05 04:13] LABS: Platelet Count 307 thou/uL (130-400)
[2019-02-05] MEDS: Dextrose 5 % And 0.9 % NaCl 1,000 ML IV SCH ×3 (04:22→20:18)
[2019-02-05 04:23] LABS: Calc. Creatinine Clearance 89 mL/min (70-130); Estimated GFR-MDRD Greater than 90
[2019-02-05] MEDS: Docusate 100 MG CAP PO SCH ×2 (08:15→20:22)
[2019-02-05] MEDS: Famotidine 20 MG TAB PO SCH ×2 (08:15→20:22)
[2019-02-05] MEDS: K-Phos Neutral 250 MG TAB PO SCH ×3 (08:15→16:50)
[2019-02-05] MEDS: Carvedilol 6.25 MG TAB PO SCH ×2 (08:15→16:50)
--- NOTE | 2019-02-05 09:02 | PDOC.PN ---
- Subjective Encounter Start Date: 02/05/19 Encounter Start Time: 08:30 Patient seen and examined. No new complaints. No overnight events - Objective MAR Reviewed: Yes Vital Signs & Weight: Vital Signs (12 hours) Temp Pulse Resp BP BP Pulse Ox 02/05/19 08:15 128/72 02/05/19 08:00 97.6 F 70 18 128/72 99 02/05/19 04:04 98.7 F 70 18 115/69 99 02/05/19 00:00 98.7 F 70 16 114/70 99 Weight Admit Weight 133 lb 4.8 oz Weight 133 lb 4.8 oz I&O: 02/04/19 02/05/19 02/06/19 06:59 06:59 06:59 Intake Total 2200 1920 Output Total 1355 1435 Balance 845 485 Result Diagrams: 02/05/19 04:00 02/05/19 04:00 Phys Exam - Physical Examination Constitutional: NAD HEENT: PERRLA, moist MMs, sclera anicteric Neck: no JVD, supple Respiratory: no wheezing, no rales, no rhonchi Cardiovascular: RRR, no significant murmur, no rub Gastrointestinal: soft, non-tender, no distention, positive bowel sounds colostomy+, YADIRA drain+, wound vac+ Musculoskeletal: no edema, pulses present Neurological: non-focal, normal sensation Psychiatric: normal affect, A&O x 3 Skin: no rash, normal turgor Dx/Plan (1) Colonic diverticular abscess Code(s): K57.20 - DVTRCLI OF LG INT W PERFORATION AND ABSCESS W/O BLEEDING Status: Acute Comment: s/p IR-guided drainage. 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 - VESICOINTESTINAL FISTULA Status: Acute (4) Afib Code(s): I48.91 - UNSPECIFIED ATRIAL FIBRILLATION Status: Chronic Comment: (5) Anemia, normocytic normochromic Code(s): D64.9 - ANEMIA, UNSPECIFIED Status: Chronic (6) Chronic anticoagulation Code(s): Z79.01 - HALFWAY (CURRENT) USE OF ANTICOAGULANTS Status: Chronic (7) Dementia Code(s): F03.90 - UNSPECIFIED DEMENTIA WITHOUT BEHAVIORAL DISTURBANCE Status: Chronic (8) HTN (hypertension) Code(s): I10 - ESSENTIAL (PRIMARY) HYPERTENSION Status: Chronic Comment: controlled - Plan cont current plan of care * medication reviewed as below * symptomatic treatment * continue post operative care as per surgeon * diet advancement as per surgeon, tolerating current diet * will need placement on discharge. Review of Systems - Review of Systems ENT: negative: Ear Pain, Ear Discharge, Nose Pain, Nose Discharge, Nose Congestion, Mouth Pain, Mouth Swelling, Throat Pain, Throat Swelling, Other Respiratory: negative: Cough, Dry, Shortness of Breath, Hemoptysis, SOB with Excertion, Pleuritic Pain, Sputum, Wheezing Cardiovascular: negative: chest pain, palpitations, orthopnea, paroxysmal nocturnal dyspnea, edema, light headedness, other Gastrointestinal: negative: Nausea, Vomiting, Abdominal Pain, Diarrhea, Constipation, Melena, Hematochezia, Other Genitourinary: negative: Dysuria, Frequency, Incontinence, Hematuria, Retention , Other Musculoskeletal: negative: Neck Pain, Shoulder Pain, Arm Pain, Back Pain, Hand Pain, Leg Pain, Foot Pain, Other - Medications/Allergies Allergies/Adverse Reactions: Allergies Allergy/AdvReac Type Severity Reaction Status Date / Time No Known Drug Allergies Allergy Verified 01/26/19 14:56 Medications: Current Medications Acetaminophen (Tylenol) 650 mg PO Q4H PRN PRN Reason: Headache/Fever/Mild Pain (1-3) Last Admin: 02/04/19 08:55 Dose: 650 mg Aspirin (Aspirin Chewable) 81 mg PO DAILY [facility] Last Admin: 01/31/19 09:12 Dose: 81 mg Carvedilol (Coreg) 6.25 mg PO BID-[facility] Last Admin: 02/05/19 08:15 Dose: 6.25 mg Cholecalciferol (Vitamin D3) 1,000 units PO DAILY [facility] Last Admin: 02/05/19 08:15 Dose: 1,000 units Docusate Sodium (Colace) 100 mg PO BID [facility] Last Admin: 02/05/19 08:15 Dose: 100 mg Donepezil HCl (Aricept) 5 mg PO HS [facility] Last Admin: 02/04/19 21:06 Dose: 5 mg Famotidine (Pepcid) 20 mg PO Q12HR [facility] Last Admin: 02/05/19 08:15 Dose: 20 mg Vancomycin HCl 1.25 gm/ Sodium (Chloride) 250 mls @ 166.667 mls/hr IVPB Q24H [facility] Last Admin: 02/04/19 16:28 Dose: 250 mls Dextrose/Sodium Chloride (D5 0.9% Ns) 1,000 mls @ 75 mls/hr IV .[id number] [facility] Last Admin: 02/05/19 04:22 Dose: 1,000 mls Meropenem 2 gm/ Sodium (Chloride) 100 mls @ 100 mls/hr IVPB 0400,1200,2000 [facility] Last Admin: 02/05/19 04:12 Dose: 100 mls Miscellaneous Medication (Pharmacy To Dose) 1 each IVPB PRN PRN PRN Reason: Pharmacy to dose Miscellaneous Medication (Pharmacy To Dose) 1 each IVPB PRN PRN PRN Reason: Pharmacy to dose: VANCO Morphine Sulfate (Morphine) 2 mg SLOW IVP Q1H PRN PRN Reason: Moderate Pain (4-6) Morphine Sulfate (Morphine) 4 mg SLOW IVP Q1H PRN PRN Reason: Severe Pain (7-10) Last Admin: 02/03/19 12:39 Dose: 4 mg Phosphorus (Kphos Neutral) 500 mg PO TID-[facility] Last Admin: 02/05/19 08:15 Dose: 500 mg
--- NOTE | 2019-02-05 12:02 | PRG ---
DATE OF SERVICE: 02/05/2019 SUBJECTIVE: The patient says she feels fine. She is not having any pain. She is tolerating full liquids. Her ostomy is working well. No nausea or vomiting. OBJECTIVE: VITAL SIGNS: On examination, temperature, she is afebrile. Pulse 99, blood pressure 128/72. GENERAL: She looks good. Incision is fine. Her ostomy is healthy and working well. LABORATORY DATA: Her H and H is 8 and 24, platelet count 307. Creatinine is 0.5. ASSESSMENT: Doing well. PLAN: Probably close to ready for discharge. Awaiting placement. Job ID: [id number]
[2019-02-05 15:34] LABS: Vancomycin, Trough 12.5 ug/mL
[2019-02-05] MEDS: Vancomycin HCl 1.25 GM in Sodium Chloride 0.9% 250 ML 250 ML IVPB SCH (16:38)
[2019-02-05] MEDS: Vancomycin HCl 1.5 GM in Sodium Chloride 0.9% 250 ML 300 ML IVPB SCH (16:50)
[2019-02-05] MEDS: Donepezil HCl 5 MG TAB PO SCH (20:23)
[2019-02-06] MEDS: Meropenem 2 GM in Sodium Chloride 0.9% 100 ML IVPB SCH (03:12)
[2019-02-06] MEDS: Carvedilol 6.25 MG TAB PO SCH ×2 (07:45→17:41)
[2019-02-06] MEDS: Famotidine 20 MG TAB PO SCH ×2 (08:37→21:06)
[2019-02-06] MEDS: K-Phos Neutral 250 MG TAB PO SCH ×3 (08:37→17:41)
[2019-02-06] MEDS: Docusate 100 MG CAP PO SCH ×2 (08:37→21:06)
[2019-02-06] MEDS ORDERED: Meropenem 1 GM in Sodium Chloride 0.9% 100 ML IVPB SCH (08:55)
--- NOTE | 2019-02-06 09:10 | PRG ---
DATE OF SERVICE: 02/04/2019 SUBJECTIVE: The patient says she feels better, really in minimal pain. No nausea or vomiting. She is tolerating clear liquids. OBJECTIVE: VITAL SIGNS: Temperature 98.6, pulse 70, and blood pressure 107/69. GENERAL: She looks good. ABDOMEN: Soft and nondistended. She has an ostomy, that is working, has flatus. Her drain is putting out about 30 mL. : Urine output is 1350. LABORATORY DATA: Her H and H are 9.3 and 29. Her creatinine is 0.5. ASSESSMENT: Doing well. PLAN: Physical therapy. Job ID: [id number]
[2019-02-06] MEDS: Morphine 4 MG/ML VIAL SLOW IVP PRN ×2 (10:33→21:06)
--- NOTE | 2019-02-06 10:44 | PRG ---
DATE OF SERVICE: 02/05/2019 SUBJECTIVE: Feeling well. No pain in the abdominal area. No vomiting. Able to eat. No respiratory symptoms. Voiding in a diaper now, Alarcon catheter having been removed. OBJECTIVE: HEENT: Ocular movements conjugate. LUNGS: Clear. HEART: S1 and S2, regular rate. ABDOMEN: Soft. Not distended. LABORATORY DATA: White cell count 7.0, hemoglobin 8, platelets 345 with normal differential. Creatinine 0.52. Liver profile normal. Albumin 3.0. Microbiology with Pseudomonas aeruginosa, Enterococcus faecium, and Bifidobacterium. The patient is currently receiving meropenem. ASSESSMENT AND DISCUSSION: Perforated diverticulitis with colovesical fistula, status post diversion. The patient to continue antimicrobials and eventual resection of involved segment and bladder repair and then reestablishment of bowel continuity down the road. The duration of therapy with Merrem will be approximately another 10 to 14 days. We will adjust dose down to 1 g q.8. Job ID: [id number] MTDD
--- NOTE | 2019-02-06 12:16 | PDOC.PN ---
- Subjective Encounter Start Date: 02/06/19 Encounter Start Time: 09:30 Patient seen and examined. No new complaints. No overnight events - Objective MAR Reviewed: Yes Vital Signs & Weight: Vital Signs (12 hours) Temp Pulse Resp BP BP Pulse Ox 02/06/19 07:48 98.7 F 70 14 126/72 98 02/06/19 07:45 126/72 02/06/19 04:00 99.3 F 69 16 107/64 97 02/06/19 00:48 99.7 F H 69 16 113/70 98 Weight Admit Weight 133 lb 4.8 oz Weight 133 lb 4.8 oz I&O: 02/05/19 02/06/19 02/07/19 06:59 06:59 06:59 Intake Total 1920 1940 900 Output Total 1435 1935 Balance 485 5 900 Result Diagrams: 02/05/19 04:00 02/05/19 04:00 Phys Exam - Physical Examination Constitutional: NAD HEENT: PERRLA, moist MMs, sclera anicteric Neck: no JVD, supple Respiratory: no wheezing, no rales, no rhonchi Cardiovascular: RRR, no significant murmur, no rub Gastrointestinal: soft, non-tender, no distention, positive bowel sounds Musculoskeletal: no edema, pulses present Neurological: non-focal, normal sensation Lymphatic: no nodes Psychiatric: normal affect, A&O x 3 Skin: no rash, normal turgor Dx/Plan (1) Colonic diverticular abscess Code(s): K57.20 - DVTRCLI OF LG INT W PERFORATION AND ABSCESS W/O BLEEDING Status: Acute Comment: s/p IR-guided drainage. 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 - VESICOINTESTINAL FISTULA Status: Acute (4) Afib Code(s): I48.91 - UNSPECIFIED ATRIAL FIBRILLATION Status: Chronic Comment: (5) Anemia, normocytic normochromic Code(s): D64.9 - ANEMIA, UNSPECIFIED Status: Chronic (6) Chronic anticoagulation Code(s): Z79.01 - [employer]ION[employer] MARKETING DIRECTOR (CURRENT) USE OF ANTICOAGULANTS Status: Chronic (7) Dementia Code(s): F03.90 - UNSPECIFIED DEMENTIA WITHOUT BEHAVIORAL DISTURBANCE Status: Chronic (8) HTN (hypertension) Code(s): I10 - ESSENTIAL (PRIMARY) HYPERTENSION Status: Chronic Comment: controlled - Plan cont current plan of care * medication reviewed as below * symptomatic treatment. * continue post operative care * will need placement Review of Systems - Review of Systems ENT: negative: Ear Pain, Ear Discharge, Nose Pain, Nose Discharge, Nose Congestion, Mouth Pain, Mouth Swelling, Throat Pain, Throat Swelling, Other Respiratory: negative: Cough, Dry, Shortness of Breath, Hemoptysis, SOB with Excertion, Pleuritic Pain, Sputum, Wheezing Cardiovascular: negative: chest pain, palpitations, orthopnea, paroxysmal nocturnal dyspnea, edema, light headedness, other Gastrointestinal: negative: Nausea, Vomiting, Abdominal Pain, Diarrhea, Constipation, Melena, Hematochezia, Other Genitourinary: negative: Dysuria, Frequency, Incontinence, Hematuria, Retention , Other Musculoskeletal: negative: Neck Pain, Shoulder Pain, Arm Pain, Back Pain, Hand Pain, Leg Pain, Foot Pain, Other - Medications/Allergies Allergies/Adverse Reactions: Allergies Allergy/AdvReac Type Severity Reaction Status Date / Time No Known Drug Allergies Allergy Verified 01/26/19 14:56 Medications: Current Medications Acetaminophen (Tylenol) 650 mg PO Q4H PRN PRN Reason: Headache/Fever/Mild Pain (1-3) Last Admin: 02/04/19 08:55 Dose: 650 mg Aspirin (Aspirin Chewable) 81 mg PO DAILY [facility] Last Admin: 01/31/19 09:12 Dose: 81 mg Carvedilol (Coreg) 6.25 mg PO BID-[facility] Last Admin: 02/06/19 07:45 Dose: 6.25 mg Cholecalciferol (Vitamin D3) 1,000 units PO DAILY [facility] Last Admin: 02/06/19 08:37 Dose: 1,000 units Docusate Sodium (Colace) 100 mg PO BID [facility] Last Admin: 02/06/19 08:37 Dose: 100 mg Donepezil HCl (Aricept) 5 mg PO HS [facility] Last Admin: 02/05/19 20:23 Dose: 5 mg Famotidine (Pepcid) 20 mg PO Q12HR [facility] Last Admin: 02/06/19 08:37 Dose: 20 mg Dextrose/Sodium Chloride (D5 0.9% Ns) 1,000 mls @ 75 mls/hr IV .[id number] [facility] Last Admin: 02/05/19 20:18 Dose: 1,000 mls Vancomycin HCl 1.5 gm/ Sodium (Chloride) 300 mls @ 200 mls/hr IVPB Q24H [facility] Last Admin: 02/05/19 16:50 Dose: 300 mls Meropenem 1 gm/ Device 50 mls @ 100 mls/hr IVPB 0400,1200,2000 [facility] Miscellaneous Medication (Pharmacy To Dose) 1 each IVPB PRN PRN PRN Reason: Pharmacy to dose Miscellaneous Medication (Pharmacy To Dose) 1 each IVPB PRN PRN PRN Reason: Pharmacy to dose: VANCO Morphine Sulfate (Morphine) 2 mg SLOW IVP Q1H PRN PRN Reason: Moderate Pain (4-6) Morphine Sulfate (Morphine) 4 mg SLOW IVP Q1H PRN PRN Reason: Severe Pain (7-10) Last Admin: 02/06/19 10:33 Dose: 4 mg Phosphorus (Kphos Neutral) 500 mg PO TID-WM [facility] Last Admin: 02/06/19 08:37 Dose: 500 mg Sodium Chloride (Flush - Normal Saline) 10 ml IVF Q12HR [facility] Sodium Chloride (Flush - Normal Saline) 10 ml IVF PRN PRN PRN Reason: Saline Flush
[2019-02-06] MEDS: MEROPENEM 1 GM/50 ML 1 GM in Premix Bag 1 BAG IVPB SCH ×2 (13:15→20:59)
[2019-02-06] MEDS: Vancomycin HCl 1.5 GM in Sodium Chloride 0.9% 250 ML 300 ML IVPB SCH (17:38)
[2019-02-06] MEDS: Dextrose 5 % And 0.9 % NaCl 1,000 ML IV SCH (17:46)
[2019-02-06] MEDS: Donepezil HCl 5 MG TAB PO SCH (21:06)
--- NOTE | 2019-02-06 21:41 | PDOC.GSPN ---
Surgery Progress Note: Subj - Subjective Narrative: Feels okay. Not eating much per RN. Colostomy functioning well. Wound looks good , minimal YADIRA output. A/P) Doing well but still w inadequate PO intake. Advance diet to increase options. Continue PT, calorie count. Surgery Progress Note: Obj - Vital signs Vital signs: Vital Signs - Most Recent Temp Pulse Resp BP Pulse Ox 100.6 F H 70 16 113/72 96 02/06/19 20:31 02/06/19 20:31 02/06/19 20:31 02/06/19 20:31 02/06/19 20:31 Surgery Progress Note: Results - Labs Result Diagrams: 02/05/19 04:00 02/05/19 04:00
[2019-02-07] MEDS: MEROPENEM 1 GM/50 ML 1 GM in Premix Bag 1 BAG IVPB SCH ×3 (03:57→19:55)
[2019-02-07 06:24] LABS: Platelet Count 346 thou/uL (130-400)
[2019-02-07 06:51] LABS: Calc. Creatinine Clearance 91 mL/min (70-130); Estimated GFR-MDRD Greater than 90
[2019-02-07] MEDS: K-Phos Neutral 250 MG TAB PO SCH ×3 (09:21→19:51)
[2019-02-07] MEDS: Docusate 100 MG CAP PO SCH ×2 (09:21→20:02)
[2019-02-07] MEDS: Famotidine 20 MG TAB PO SCH ×2 (09:21→20:02)
[2019-02-07] MEDS: Dextrose 5 % And 0.9 % NaCl 1,000 ML IV SCH ×2 (09:22→11:42)
[2019-02-07] MEDS: Carvedilol 6.25 MG TAB PO SCH ×2 (09:36→18:16)
--- NOTE | 2019-02-07 10:20 | PDOC.PN ---
- Subjective Encounter Start Date: 02/07/19 Encounter Start Time: 08:20 Patient seen and examined. No new complaints. No overnight events - Objective MAR Reviewed: Yes Vital Signs & Weight: Vital Signs (12 hours) Temp Pulse Resp BP BP Pulse Ox 02/07/19 09:36 105/65 02/07/19 07:33 98.3 F 69 14 105/65 99 02/07/19 04:00 98.7 F 70 18 127/74 95 02/07/19 00:00 98.9 F 68 16 117/71 96 Weight Admit Weight 133 lb 4.8 oz Weight 133 lb 4.8 oz I&O: 02/06/19 02/07/19 02/08/19 06:59 06:59 06:59 Intake Total 9281 575 7944 Output Total 6380 318 4617 Balance 5 -85 20 Result Diagrams: 02/07/19 06:09 02/07/19 06:09 Phys Exam - Physical Examination Constitutional: NAD HEENT: PERRLA, moist MMs, sclera anicteric Neck: no JVD, supple Respiratory: no wheezing, no rales, no rhonchi Cardiovascular: RRR, no significant murmur Gastrointestinal: soft, non-tender, no distention colostomy+ Musculoskeletal: no edema, pulses present Neurological: non-focal, normal sensation Lymphatic: no nodes Psychiatric: normal affect Skin: no rash, normal turgor Dx/Plan (1) Colonic diverticular abscess Code(s): K57.20 - DVTRCLI OF LG INT W PERFORATION AND ABSCESS W/O BLEEDING Status: Acute Comment: s/p IR-guided drainage. 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 - VESICOINTESTINAL FISTULA Status: Acute (4) Afib Code(s): I48.91 - UNSPECIFIED ATRIAL FIBRILLATION Status: Chronic Comment: (5) Anemia, normocytic normochromic Code(s): D64.9 - ANEMIA, UNSPECIFIED Status: Chronic (6) Chronic anticoagulation Code(s): Z79.01 - ASSISTED (CURRENT) USE OF ANTICOAGULANTS Status: Chronic (7) Dementia Code(s): F03.90 - UNSPECIFIED DEMENTIA WITHOUT BEHAVIORAL DISTURBANCE Status: Chronic (8) HTN (hypertension) Code(s): I10 - ESSENTIAL (PRIMARY) HYPERTENSION Status: Chronic Comment: controlled - Plan cont current plan of care, continue antibiotics, PT/OT, psych social worker * medication reviewed as below * symptomatic treatment * continue meropenam for another 10 days as per ID * discharge planning. Review of Systems - Review of Systems Constitutional: weakness. negative: fever, chills, sweats, malaise, other ENT: negative: Ear Pain, Ear Discharge, Nose Pain, Nose Discharge, Nose Congestion, Mouth Pain, Mouth Swelling, Throat Pain, Throat Swelling, Other Respiratory: negative: Cough, Dry, Shortness of Breath, Hemoptysis, SOB with Excertion, Pleuritic Pain, Sputum, Wheezing Cardiovascular: negative: chest pain, palpitations, orthopnea, paroxysmal nocturnal dyspnea, edema, light headedness, other Gastrointestinal: negative: Nausea, Vomiting, Abdominal Pain, Diarrhea, Constipation, Melena, Hematochezia, Other Genitourinary: negative: Dysuria, Frequency, Incontinence, Hematuria, Retention , Other Musculoskeletal: negative: Neck Pain, Shoulder Pain, Arm Pain, Back Pain, Hand Pain, Leg Pain, Foot Pain, Other Skin: negative: Rash, Lesions, Martin, Bruising, Other - Medications/Allergies Allergies/Adverse Reactions: Allergies Allergy/AdvReac Type Severity Reaction Status Date / Time No Known Drug Allergies Allergy Verified 01/26/19 14:56 Medications: Current Medications Acetaminophen (Tylenol) 650 mg PO Q4H PRN PRN Reason: Headache/Fever/Mild Pain (1-3) Last Admin: 02/04/19 08:55 Dose: 650 mg Aspirin (Aspirin Chewable) 81 mg PO DAILY [facility] Last Admin: 01/31/19 09:12 Dose: 81 mg Carvedilol (Coreg) 6.25 mg PO BID-[facility] Last Admin: 02/07/19 09:36 Dose: Not Given Cholecalciferol (Vitamin D3) 1,000 units PO DAILY [facility] Last Admin: 02/07/19 09:21 Dose: 1,000 units Docusate Sodium (Colace) 100 mg PO BID [facility] Last Admin: 02/07/19 09:21 Dose: 100 mg Donepezil HCl (Aricept) 5 mg PO HS [facility] Last Admin: 02/06/19 21:06 Dose: 5 mg Famotidine (Pepcid) 20 mg PO Q12HR [facility] Last Admin: 02/07/19 09:21 Dose: 20 mg Dextrose/Sodium Chloride (D5 0.9% Ns) 1,000 mls @ 75 mls/hr IV .[id number] [facility] Last Admin: 02/07/19 09:22 Dose: Not Given Vancomycin HCl 1.5 gm/ Sodium (Chloride) 300 mls @ 200 mls/hr IVPB Q24H [facility] Last Admin: 02/06/19 17:38 Dose: 300 mls Meropenem 1 gm/ Device 50 mls @ 100 mls/hr IVPB 0400,1200,2000 [facility] Last Admin: 02/07/19 03:57 Dose: 50 mls Miscellaneous Medication (Pharmacy To Dose) 1 each IVPB PRN PRN PRN Reason: Pharmacy to dose Miscellaneous Medication (Pharmacy To Dose) 1 each IVPB PRN PRN PRN Reason: Pharmacy to dose: VANCO Morphine Sulfate (Morphine) 2 mg SLOW IVP Q1H PRN PRN Reason: Moderate Pain (4-6) Morphine Sulfate (Morphine) 4 mg SLOW IVP Q1H PRN PRN Reason: Severe Pain (7-10) Last Admin: 02/06/19 21:06 Dose: 4 mg Phosphorus (Kphos Neutral) 500 mg PO TID-WM [facility] Last Admin: 02/07/19 09:21 Dose: 500 mg Sodium Chloride (Flush - Normal Saline) 10 ml IVF Q12HR [facility] Last Admin: 02/07/19 09:21 Dose: Not Given Sodium Chloride (Flush - Normal Saline) 10 ml IVF PRN PRN PRN Reason: Saline Flush
--- NOTE | 2019-02-07 11:46 | PDOC.GSPN ---
Surgery Progress Note: Subj - Subjective Narrative: Patient did agree to little bit more for breakfast yesterday after advancing to regular diet but only ate about three quarters of her potatoes and half a snack for the rest of the day. She refused her dinner. She has ensure ordered but can' t really tell me if she is been getting it. The nurse did get report that she will drink vanilla ensure but it's undocumented whether that was the snack from yesterday. The patient denies any nausea just doesn't have much of an appetite. Her colostomy is functioning well. Vac has minimal output and YADIRA also has minimal output. H&H and creatinine have been stable. Abdomen is soft with minimal tenderness around the VAC site but otherwise nontender. Urine is clear without particulate matter or blood. Assessment/plan: Status post diverting colostomy and YADIRA drain and VAC placement for diverticular abscess with formation of colovesical fistula. Doing well from a surgical standpoint but I'm still concerned about her oral intake. I again encouraged her to drink her supplements and as much of her meals as she is able and stressed the importance of taking in enough protein to heal. From a surgical standpoint she is ready for discharge to rehabilitation, and its possible that with additional activity her appetite might improve. I remain concerned however that she may require some additional nutritional support. She does have a PICC line in place if TPN is necessary. I am going to recheck some nutrition labs again tomorrow. Her last prealbumin was slightly low at 12. Surgery Progress Note: Obj - Vital signs Vital signs: Vital Signs - Most Recent Temp Pulse Resp BP Pulse Ox 98.3 F 69 14 105/65 99 02/07/19 07:33 02/07/19 07:33 02/07/19 07:33 02/07/19 09:36 02/07/19 07:33 Surgery Progress Note: Results - Labs Result Diagrams: 02/07/19 06:09 02/07/19 06:09 Lab results: Laboratory Results - last 24 hr 02/07/19 02/07/19 06:09 06:09 Hgb 8.0 L Hct 25.1 L Plt Count 346 Creatinine 0.51 L Estimated GFR (MDRD) Greater than 90
--- NOTE | 2019-02-07 11:56 | DIS ---
DATE OF ADMISSION: 01/26/2019 DATE OF DISCHARGE: 02/07/2019 PRIMARY CARE PHYSICIAN: Dr. Tisha Rapp. DISCHARGE DISPOSITION: Rehab. PRIMARY DISCHARGE DIAGNOSES: Diverticular abscess with diverticulitis with vesicocolonic fistula, urinary tract infection, status post laparotomy and colostomy. SECONDARY DISCHARGE DIAGNOSES: Hypertension, dementia, chronic anticoagulation, normocytic normochromic anemia, and chronic atrial fibrillation. PRIMARY PROCEDURE/OPERATION: CT guided abscess drainage, PICC line placement, laparotomy and colostomy placement. RADIOLOGICAL INVESTIGATION: Abdomen and pelvis CT scan. SIGNIFICANT LABORATORY DATA: Hemoglobin 8.0. INR 1.1. Creatinine 0.51. Electrolytes normal. LFTs normal. Urinalysis, suggestive UTI. Urine culture grew E coli and Pseudomonas. Abdominal abscess culture grew Pseudomonas and enterococcus. DISCHARGE MEDICATIONS: The patient will continue to get meropenem 1 g IV q.8 hourly for another 10 days; Florastor 250 mg p.o. daily, potassium chloride 10 mEq p.o. daily, losartan 25 mg p.o. daily, Lasix 40 mg daily, Aricept 5 mg p.o. at bedtime, vitamin D3 1000 units p.o. daily, Coreg 6.25 mg in the morning and 12.5 mg in the evening, aspirin 81 mg p.o. daily, Eliquis 5 mg p.o. b.i.d. CONTRAINDICATION: None. CODE STATUS: Full code. INPATIENT DRAWER IN: Dr. Love was following while in hospital. Dr. Silva was following while in hospital. TEST RESULTS PENDING ON DISCHARGE: None. ALLERGIES: NO KNOWN DRUG ALLERGIES. DISCHARGE PLAN: Posthospital, the patient will be discharged to rehab facility. HOSPITAL COURSE: A 73-year-old female, who was admitted by Dr. Sejal Escobedo. Please see her H and P for further details. The patient was admitted from primary care physician's office for abdominal pain. She has a history of diverticulitis and she was treated with antibiotic therapy without any significant improvement. During this admission, the patient was found with a diverticular abscess as well as a colovesical fistula. The patient also had abnormal urinalysis suggestive of urinary tract infection from colovesical fistula. This patient required drainage through CT-guided of abscess, but the patient was not improving with antibiotic therapy and that is why she required surgery. Dr. Love did laparotomy and colostomy placement. This patient will need future bladder repair. At this point, the patient will need IV antibiotic therapy as per Dr. Silva for another 10 days. Postoperatively, the patient has good recovery, but the patient has failure to thrive and physical weakness and that is why she will need short-term rehabilitation. With help of caser, we are arranging rehab placement. Once we have rehab arranged, then this patient is medically stable for discharge. Paperwork for discharge done and discharge medication and reconciliation done. The patient is seen and examined at bedside today. Please see my progress note from today for further detail. Job ID: [id number]
[2019-02-07 12:10] LABS: #Eosinphils 0.1 thou/uL (0.0-0.7); #Lymphocytes 2.5 thou/uL (1.20-3.40); #Monocytes 0.4 thou/uL (0.11-0.59); #Neutrophils 2.9 thou/uL (1.40-6.50); %Basophils 0.4 % (0.0-1.0); %Eosinophils 1.6 % (0.0-10.0); %Lymphocytes 42.4 % (21.0-51.0); %Monocytes 7.2 % (0.0-10.0); %Neutrophils 48.5 % (42.0-75.0); Hemoglobin 9.1 g/dL (12.0-16.0); Mean Corpuscular Hemoglobin 28.3 pg (27.0-31.0); Mean Corpuscular Volume 88.4 fL (78.0-98.0); Mean Platelet Volume 6.5 fL (7.4-10.4); Platelet Count 379 thou/uL (130-400); RBC Distribution Width 14.1 % (11.5-14.5); Red Blood Cell (RBC) Count 3.21 mill/uL (4.20-5.40)
[2019-02-07] MEDS: Vancomycin HCl 1.5 GM in Sodium Chloride 0.9% 250 ML 300 ML IVPB SCH (17:03)
[2019-02-07 17:30] LABS: ALT (SGPT) 19 U/L (8-55); AST (SGOT) 36 U/L (5-34); Albumin 2.5 g/dL (3.4-4.8); Alkaline Phosphatase 72 U/L (40-150); Anion Gap 10 mmol/L (10-20); BUN (Urea Nitrogen) 9 mg/dL (9.8-20.1); Bilirubin, Total 0.4 mg/dL (0.2-1.2); Calc. Creatinine Clearance 77 mL/min (70-130); Calcium 8.8 mg/dL (7.8-10.44); Carbon Dioxide 28 mmol/L (23-31); Chloride 103 mmol/L (98-107); Estimated GFR-MDRD Greater than 90; Glucose 106 mg/dL (83-110); Potassium 3.8 mmol/L (3.5-5.1); Protein, Total 5.5 g/dL (6.0-8.3); Sodium 137 mmol/L (136-145)
[2019-02-07] MEDS: Donepezil HCl 5 MG TAB PO SCH (20:02)
[2019-02-07] MEDS ORDERED: Multivitamins, Adult 10 ML, Multitrace-5 5 ML in D15W-AA 5% with Lytes 2,000 ML, Fat Em... IV SCH (22:00)
[2019-02-08] MEDS: MEROPENEM 1 GM/50 ML 1 GM in Premix Bag 1 BAG IVPB SCH ×2 (04:16→12:02)
[2019-02-08] MEDS: Famotidine 20 MG TAB PO SCH (08:19)
[2019-02-08] MEDS: Carvedilol 6.25 MG TAB PO SCH ×2 (08:19→16:45)
[2019-02-08] MEDS: K-Phos Neutral 250 MG TAB PO SCH ×3 (08:20→16:45)
[2019-02-08] MEDS: Docusate 100 MG CAP PO SCH (08:20)
--- NOTE | 2019-02-08 08:50 | PDOC.GSPN ---
Surgery Progress Note: Subj - Subjective Narrative: Patient states that she feels good today. She denies any pain. No fevers. Abdomen is soft and nontender. She was drinking Ensure when I came in the room, and her oral intake yesterday was much improved. She drank 2 full cans of ensure and ate about half of her breakfast and a quarter of her other meals. Assessment/plan: Doing better status post diverting colostomy and drainage of abdominal abscess for complicated diverticulitis and colovesical fistula. Calorie count for 3 days showed only about 200 sajan per day, and was actually declining over those 3 days, so TPN was started yesterday, but her oral intake yesterday markedly improved from previous days. If she sustains this we can likely discontinue the TPN. She has been accepted to rehabilitation and is awaiting transfer. Continue VAC dressings to the left lower quadrant and standard colostomy care. Surgery Progress Note: Obj - Vital signs Vital signs: Vital Signs - Most Recent Temp Pulse Resp BP Pulse Ox 98.9 F 70 16 109/68 97 02/08/19 05:13 02/08/19 05:13 02/08/19 05:13 02/08/19 08:19 02/08/19 05:13 Surgery Progress Note: Results - Labs Result Diagrams: 02/07/19 11:58 02/07/19 16:48
[2019-02-08] MEDS: Dextrose 5 % And 0.9 % NaCl 1,000 ML IV SCH (10:14)
[2019-02-08] MEDS: Morphine 4 MG/ML VIAL SLOW IVP PRN (11:05)
--- NOTE | 2019-02-08 11:37 | DIS ---
DATE OF ADMISSION: 01/26/2019 DATE OF DISCHARGE: 02/08/2019 Please see my discharge summary dictated yesterday for more detail. As the patient has very poor p.o. intake and that is why General Surgery recommended TPN which will be done until the patient has adequate oral intake at rehab facility and patient will continue to get IV antibiotic therapy as ordered. Otherwise, the patient is medically stable and she has continuous daily improvement. She will go to rehab for more rehabilitation and then eventual discharge from there. The patient is seen and examined at bedside today. Please see my progress note from today for further detail. Job ID: [id number]
--- NOTE | 2019-02-08 11:37 | PDOC.PN ---
- Subjective Encounter Start Date: 02/08/19 Encounter Start Time: 07:30 Patient seen and examined. No new complaints. No overnight events - Objective MAR Reviewed: Yes Vital Signs & Weight: Vital Signs (12 hours) Temp Pulse Resp BP BP Pulse Ox 02/08/19 08:19 109/68 02/08/19 05:13 98.9 F 70 16 121/70 97 02/08/19 01:05 98.9 F 70 16 107/65 98 Weight Admit Weight 133 lb 4.8 oz Weight 133 lb 4.8 oz I&O: 02/07/19 02/08/19 02/09/19 06:59 06:59 06:59 Intake Total 900 2855 Output Total 985 1855 Balance -85 1000 Result Diagrams: 02/07/19 11:58 02/07/19 16:48 Phys Exam - Physical Examination Constitutional: NAD HEENT: moist MMs, sclera anicteric Neck: no JVD, supple Respiratory: no wheezing, no rales, no rhonchi Cardiovascular: RRR, no significant murmur, no rub Gastrointestinal: soft colostomy+, wound vac+ Musculoskeletal: no edema, pulses present Neurological: non-focal, normal sensation, moves all 4 limbs Lymphatic: no nodes Psychiatric: normal affect Skin: no rash, normal turgor Dx/Plan (1) Colonic diverticular abscess Code(s): K57.20 - DVTRCLI OF LG INT W PERFORATION AND ABSCESS W/O BLEEDING Status: Acute Comment: s/p IR-guided drainage. 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 - VESICOINTESTINAL FISTULA Status: Acute (4) Afib Code(s): I48.91 - UNSPECIFIED ATRIAL FIBRILLATION Status: Chronic Comment: (5) Anemia, normocytic normochromic Code(s): D64.9 - ANEMIA, UNSPECIFIED Status: Chronic (6) Chronic anticoagulation Code(s): Z79.01 - NURSING HOME (CURRENT) USE OF ANTICOAGULANTS Status: Chronic (7) Dementia Code(s): F03.90 - UNSPECIFIED DEMENTIA WITHOUT BEHAVIORAL DISTURBANCE Status: Chronic (8) HTN (hypertension) Code(s): I10 - ESSENTIAL (PRIMARY) HYPERTENSION Status: Chronic Comment: controlled - Plan cont current plan of care, continue antibiotics, social media project manager * medication reviewed as below * symptomatic treatment * see discharge yasiry. Review of Systems - Review of Systems ENT: negative: Ear Pain, Ear Discharge, Nose Pain, Nose Discharge, Nose Congestion, Mouth Pain, Mouth Swelling, Throat Pain, Throat Swelling, Other Respiratory: negative: Cough, Dry, Shortness of Breath, Hemoptysis, SOB with Excertion, Pleuritic Pain, Sputum, Wheezing Cardiovascular: negative: chest pain, palpitations, orthopnea, paroxysmal nocturnal dyspnea, edema, light headedness, other Gastrointestinal: negative: Nausea, Vomiting, Abdominal Pain, Diarrhea, Constipation, Melena, Hematochezia, Other Genitourinary: negative: Dysuria, Frequency, Incontinence, Hematuria, Retention , Other Musculoskeletal: negative: Neck Pain, Shoulder Pain, Arm Pain, Back Pain, Hand Pain, Leg Pain, Foot Pain, Other - Medications/Allergies Allergies/Adverse Reactions: Allergies Allergy/AdvReac Type Severity Reaction Status Date / Time No Known Drug Allergies Allergy Verified 01/26/19 14:56 Medications: Current Medications Acetaminophen (Tylenol) 650 mg PO Q4H PRN PRN Reason: Headache/Fever/Mild Pain (1-3) Last Admin: 02/04/19 08:55 Dose: 650 mg Aspirin (Aspirin Chewable) 81 mg PO DAILY [facility] Last Admin: 01/31/19 09:12 Dose: 81 mg Carvedilol (Coreg) 6.25 mg PO BID-[facility] Last Admin: 02/08/19 08:19 Dose: Not Given Cholecalciferol (Vitamin D3) 1,000 units PO DAILY [facility] Last Admin: 02/08/19 08:20 Dose: 1,000 units Docusate Sodium (Colace) 100 mg PO BID [facility] Last Admin: 02/08/19 08:20 Dose: 100 mg Donepezil HCl (Aricept) 5 mg PO HS [facility] Last Admin: 02/07/19 20:02 Dose: 5 mg Famotidine (Pepcid) 20 mg PO Q12HR [facility] Last Admin: 02/08/19 08:19 Dose: 20 mg Dextrose/Sodium Chloride (D5 0.9% Ns) 1,000 mls @ 75 mls/hr IV .[id number] [facility] Last Admin: 02/08/19 10:14 Dose: 1,000 mls Vancomycin HCl 1.5 gm/ Sodium (Chloride) 300 mls @ 200 mls/hr IVPB Q24H [facility] Last Admin: 02/07/19 17:03 Dose: 300 mls Meropenem 1 gm/ Device 50 mls @ 100 mls/hr IVPB 0400,1200,2000 [facility] Last Admin: 02/08/19 04:16 Dose: 50 mls Multivitamins 10 ml/ Chromium/Copper/Manganese/Seleni/Zn 5 ml/ Amino Acids/ Electrolytes/Fat Emulsion Intravenous 2,265 mls @ 94.375 mls/hr IV 2200 [facility] Last Admin: 02/07/19 21:56 Dose: 2,265 mls Miscellaneous Medication (Pharmacy To Dose) 1 each IVPB PRN PRN PRN Reason: Pharmacy to dose Miscellaneous Medication (Pharmacy To Dose) 1 each IVPB PRN PRN PRN Reason: Pharmacy to dose: VANCO Morphine Sulfate (Morphine) 2 mg SLOW IVP Q1H PRN PRN Reason: Moderate Pain (4-6) Morphine Sulfate (Morphine) 4 mg SLOW IVP Q1H PRN PRN Reason: Severe Pain (7-10) Last Admin: 02/08/19 11:05 Dose: 4 mg Phosphorus (Kphos Neutral) 500 mg PO TID-[facility] Last Admin: 02/08/19 08:20 Dose: 500 mg Sodium Chloride (Flush - Normal Saline) 10 ml IVF Q12HR [facility] Last Admin: 02/08/19 08:20 Dose: Not Given Sodium Chloride (Flush - Normal Saline) 10 ml IVF PRN PRN PRN Reason: Saline Flush
[2019-02-08] MEDS: Vancomycin HCl 1.5 GM in Sodium Chloride 0.9% 250 ML 300 ML IVPB SCH (15:41)
[2019-02-08 16:31] VITALS: BP 98/62; TEMP 98.9
== END 2019-02-08 19:39 | DRG 330 ==
LOC: ERS 09:47 → T4-A 14:47 → SURG A 02-01 14:31
PROVIDERS: ADMIT Internal Medicine; ATTEND Internal Medicine
PROC: 0W9F0ZZ Drainage of Abdominal Wall, Open Approach (ICD-10-PCS; principal; 2019-02-01)
PROC: 0D1K0Z4 Bypass Ascending Colon to Cutaneous, Open Approach (ICD-10-PCS; 2019-02-01)
PROC: 0J9830Z Drainage of Abdomen Subcutaneous Tissue and Fascia with Drainage Device, Percutaneous Approach (ICD-10-PCS; 2019-02-01)
DX: K57.20 Diverticulitis of large intestine with perforation and abscess without bleeding (principal); N39.0 Urinary tract infection, site not specified; L02.211 Cutaneous abscess of abdominal wall; N32.1 Vesicointestinal fistula; I10 Essential (primary) hypertension; D64.9 Anemia, unspecified; I48.2 Chronic atrial fibrillation; F03.90 Unspecified dementia, unspecified severity, without behavioral disturbance, psychotic disturbance, mood disturbance, and anxiety; I49.5 Sick sinus syndrome; Z79.01 Long term (current) use of anticoagulants; Z95.0 Presence of cardiac pacemaker; Z82.49 Family history of ischemic heart disease and other diseases of the circulatory system
CPT/HCPCS: 36415; 36416; 36430; 36569; 49020; 74177; 77012; 80048; 80053; 80202; 81003; 81015; 82565; 83690; 83735; 84100; 84134; 85014; 85018; 85025; 85049; 85610; 85730; 86850; 86900; 86901; 87040; 87070; 87076; 87077; 87086; 87186; 87205; 93005; 93010; 96365; C1751; J0131; J0171; J1100; J1642; J1644; J2001; J2185; J2250; J2270; J2405; J2543; J2704; J3010; J3370; J3490; J7050; P9016; Q9966; Q9967; S0028

== ENCOUNTER 2019-06-13 08:58 | Outpatient (CLI) | payer MEDICARE, OTHER ==
[2019-06-13] MEDS ORDERED: ISOVUE-370 76%-LOCM 1 ML ONE (10:49)
--- NOTE | 2019-06-13 12:13 | CT ---
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 COMPARISON: 02/15/19. TECHNIQUE: IV injection of iodinated contrast media: 70 mL [id number]. Oral contrast media: Administered. FINDINGS: Again noted is the left lower quadrant colostomy. The enteric contrast material is present from the c ecum through the ascending colon, transverse colon, and the upper descending colon into the colostomy portion. The Bety's pouch is long, and contains enteric contrast material. The blind end begins at the mid descending colon, and the rest extends to the rectum. There is minimal fat stranding or edema, not n ecessarily due to diverticulitis, adjacent to the sigmoid colon component. The previously seen tubular collection of fluid and gas in the left lower quadrant of the abdominal c avity and pelvic inlet, representing abscess, is much smaller. The upper component now consists of a very thin, elongated soft tissue density structure containing scattered tiny pockets of gas (axial im age 55 of 92, series 2; coronal image 23 of 52, series 4). The lower component, which does not appear to communicate with the upper component, consists of an approximately 1 x 1.5 x 2 cm well-circumscri bed collection of fluid and gas that abuts the left side of the urinary bladder, and perhaps communic ates with the lumen of bladder, with a current configuration resembling a bladder diverticulum (axial image 67 of 92, series 2; coronal image 25 of 52, series 4). Just superior to that, there is chronic traction/scarring of the superolateral edge of the urinary bladder. At the anterior edge of the urinary bladder, there is a 2 x 2.5 x 2.5 cm bladder diverticulum filled with air. This was present previously, but the air was not present previously (axial image 65 of 92 s eries 2; coronal image 16 of 52, series 4). 3 cm right renal exophytic cyst. No hydronephrosis bilaterally. No abdominal aortic aneurysm. Liver, pancreas, adrenals, left kidney, and spleen demonstrate no major pathology. S-shaped scoliosis of spine. No pneumoperitoneum. No small bowel dilation. IMPRESSION: 1. The previously demonstrated tubular abscess in the left lower quadrant and left upper pelvis has become smaller and apparently into two components. The lower component now has the appearan ce of a left bladder diverticulum. The upper component is now a broad, thin, plate-like or linear co llapsed lesion that contain scattered punctate air bubbles. 2. Anterior bladder diverticulum. 3. Colostomy and Bety's pouch. JNR POS: TPC
== END 2019-06-13 08:59 | disposition home or self-care (01) ==
LOC: BICCT 08:58
PROVIDERS: ATTEND Surgery
DX: N32.1 Vesicointestinal fistula (principal); N32.3 Diverticulum of bladder; K82.8 Other specified diseases of gallbladder; Z93.3 Colostomy status
CPT/HCPCS: 74177; Q9966

== ENCOUNTER 2019-07-14 07:47 | Outpatient (CLI) | payer MEDICARE, OTHER ==
[2019-07-14 11:04] LABS: #Eosinphils 0.1 thou/uL (0.0-0.7); #Lymphocytes 2.7 thou/uL (1.20-3.40); #Monocytes 0.3 thou/uL (0.11-0.59); #Neutrophils 2.9 thou/uL (1.40-6.50); %Basophils 0.6 % (0.0-1.0); %Eosinophils 1.3 % (0.0-10.0); %Lymphocytes 44.2 % (21.0-51.0); %Monocytes 5.6 % (0.0-10.0); %Neutrophils 48.3 % (42.0-75.0); Hemoglobin 11.8 g/dL (12.0-16.0); Mean Corpuscular HGB CONC 32.9 g/dL (32.0-36.0); Mean Corpuscular Volume 94.1 fL (78.0-98.0); Platelet Count 335 thou/uL (130-400); RBC Distribution Width 13.4 % (11.5-14.5)
[2019-07-14 11:16] LABS: Hemoglobin A1c 5.4 % (4.0-6.0)
[2019-07-14 11:22] LABS: ALT (SGPT) 8 U/L (8-55); AST (SGOT) 15 U/L (5-34); Albumin 4.7 g/dL (3.4-4.8); Alkaline Phosphatase 84 U/L (40-150); Anion Gap 10 mmol/L (10-20); BUN (Urea Nitrogen) 13 mg/dL (9.8-20.1); Bilirubin, Total 0.7 mg/dL (0.2-1.2); Calc. Creatinine Clearance 0 mL/min (70-130); Calcium 10.2 mg/dL (7.8-10.44); Carbon Dioxide 27 mmol/L (23-31); Chloride 106 mmol/L (98-107); Estimated GFR-MDRD 77; Globulin 3.4 g/dL (2.4-3.5); Glucose 109 mg/dL (83-110); Potassium 4.1 mmol/L (3.5-5.1); Protein, Total 8.1 g/dL (6.0-8.3); Sodium 139 mmol/L (136-145)
[2019-07-14 11:23] LABS: Bacteria/HPF 4+ HPF (None Seen); Bilirubin Negative (Negative); Blood, Urine 2+ (Negative); Clarity Turbid (Clear); Glucose, Urine (Dipstick) Normal (Negative); Leukocyte 500 Leu/uL (Negative); Nitrite 2+ (Negative); Protein, Urine (Dipstick) 30 mg/dL (Neg-Trace); Urobilinogen Normal mg/dL (Less than 2); WBC/HPF Greater than 50 HPF (0-3)
[2019-07-14 11:29] LABS: Renal Epithelial 0-3 HPF (None Seen); Transitional Epithelial 0-3 HPF (None Seen)
== END 2019-07-14 07:48 | disposition home or self-care (01) ==
LOC: LABBT 07:47
PROVIDERS: ATTEND Urology
DX: Z01.818 Encounter for other preprocedural examination (principal); N32.1 Vesicointestinal fistula; R82.8 Abnormal findings on cytological and histological examination of urine; N35.92 Unspecified urethral stricture, female; N32.3 Diverticulum of bladder; Z93.3 Colostomy status
CPT/HCPCS: 80053; 81001; 83036; 85025; 87077; 87086; 87186; 93005; 93010

== ENCOUNTER 2019-07-14 10:00 | Inpatient (IN) | payer MEDICARE, OTHER ==
[2019-07-21] MEDS ORDERED: Midazolam HCl 2 mg/2 ml Vial ONE ×2 (06:35→07:06)
[2019-07-21] MEDS ORDERED: Fentanyl 100 MCG/2 ML VIAL ONE ×2 (06:36→07:06)
[2019-07-21] MEDS ORDERED: Sodium Chloride 0.9% 100 ML ONE (06:43)
[2019-07-21] MEDS ORDERED: cefOXitin 2 GM VIAL ONE ×3 (06:43→13:18)
[2019-07-21] MEDS ORDERED: Levofloxacin 500 mg/D5W 100 ml Premix Bag ONE (06:43)
[2019-07-21] MEDS ORDERED: Bupivacaine/Epinephrine 0.25% 30 ML VIAL ONE (06:57)
[2019-07-21] MEDS ORDERED: Iothalamate Meglumine 60% 50 ML VIAL FS ONE (06:57)
[2019-07-21] MEDS ORDERED: Dexamethasone 4 mg/ml Vial ONE (07:16)
[2019-07-21] MEDS ORDERED: Phenylephrine HCL 10 MG/ML VIAL ONE (07:38)
[2019-07-21] MEDS ORDERED: PROPOFOL 200 MG/20 ML VIAL ONE (10:01)
[2019-07-21] MEDS ORDERED: Rocuronium Bromide 10 MG/ML (10ML VIAL) ONE (10:01)
[2019-07-21] MEDS ORDERED: PHENYLEPHRINE-NS 100 MCG/ML 10 ML SYRINGE ONE (10:01)
[2019-07-21] MEDS ORDERED: Ondansetron PF 4 MG/2 ML Vial ONE (10:01)
[2019-07-21] MEDS ORDERED: Lidocaine 1% PF 5 ML VIAL ONE (10:01)
[2019-07-21] MEDS ORDERED: Methylene Blue 50 MG/10 ML AMPUL ONE ×2 (10:29)
[2019-07-21] MEDS ORDERED: hydrALAZINE 20 MG/ML VIAL SLOW IVP PRN (15:17)
[2019-07-21] MEDS ORDERED: Morphine 2 MG/ML SYRINGE SLOW IVP PRN (15:17)
[2019-07-21] MEDS ORDERED: Promethazine HCl 25 MG/ML VIAL IM PRN (15:17)
[2019-07-21] MEDS ORDERED: Morphine 4 MG/ML VIAL SLOW IVP PRN (15:17)
[2019-07-21] MEDS ORDERED: Bupivacaine HCl 0.5%/Epinephrine 1:200,000/PF 30 ml Vial ONE (15:36)
[2019-07-21] MEDS ORDERED: hydrALAZINE 20 MG/ML VIAL ONE (15:49)
[2019-07-21 17:25] VITALS: BMI 21.6
[2019-07-21] MEDS ORDERED: Acetaminophen 1,000 MG in Premix Bag 1 BAG IVPB SCH (18:00)
[2019-07-21] MEDS: Sodium Chloride 0.9% 1,000 ML IV SCH ×2 (18:49→20:24)
[2019-07-21] MEDS: Acetaminophen 1,000 MG in Premix Bag 1 BAG IVPB SCH ×2 (19:08→23:55)
[2019-07-21] MEDS: Carvedilol 6.25 MG TAB PO SCH (20:26)
[2019-07-21] MEDS: Famotidine/PF 20 mg/2ml Vial SLOW IVP SCH (20:29)
[2019-07-21] MEDS: Famotidine 20 MG TAB PO SCH (20:30)
[2019-07-21] MEDS: cefOXitin Sodium/Dextrose,Iso 1 GM in Premix Bag 1 BAG IVPB SCH (21:14)
[2019-07-21] MEDS ORDERED: cefOXitin Sodium 1 GM in Sodium Chloride 0.9% 100 ML IVPB SCH (22:00)
[2019-07-22 04:43] LABS: #Lymphocytes 2.1 thou/uL (1.20-3.40); #Monocytes 0.6 thou/uL (0.11-0.59); #Neutrophils 7.8 thou/uL (1.40-6.50); %Basophils 0.3 % (0.0-1.0); %Eosinophils 0.1 % (0.0-10.0); %Lymphocytes 19.8 % (21.0-51.0); %Monocytes 5.6 % (0.0-10.0); %Neutrophils 74.2 % (42.0-75.0); Hemoglobin 9.3 g/dL (12.0-16.0); Mean Corpuscular HGB CONC 33.8 g/dL (32.0-36.0); Mean Corpuscular Hemoglobin 31.7 pg (27.0-31.0); Mean Corpuscular Volume 93.7 fL (78.0-98.0); Mean Platelet Volume 7.2 fL (7.4-10.4); Platelet Count 283 thou/uL (130-400); RBC Distribution Width 13.2 % (11.5-14.5); Red Blood Cell (RBC) Count 2.93 mill/uL (4.20-5.40); White Blood Cell (WBC) Count 10.5 thou/uL (4.8-10.8)
[2019-07-22 04:53] LABS: Anion Gap 11 mmol/L (10-20); BUN (Urea Nitrogen) 10 mg/dL (9.8-20.1); Calc. Creatinine Clearance 55 mL/min (70-130); Calcium 8.7 mg/dL (7.8-10.44); Carbon Dioxide 21 mmol/L (23-31); Chloride 107 mmol/L (98-107); Estimated GFR-MDRD 80; Glucose 111 mg/dL (83-110); Potassium 4.1 mmol/L (3.5-5.1); Sodium 135 mmol/L (136-145)
[2019-07-22] MEDS: Acetaminophen 1,000 MG in Premix Bag 1 BAG IVPB SCH ×2 (05:50→12:12)
[2019-07-22] MEDS: cefOXitin Sodium/Dextrose,Iso 1 GM in Premix Bag 1 BAG IVPB SCH (05:51)
[2019-07-22] MEDS: Sodium Chloride 0.9% 1,000 ML IV SCH ×3 (06:00→23:29)
[2019-07-22] MEDS ORDERED: Prevnar 13-Val Conj/PF 0.5 ML SYRINGE IM ONE (09:00)
[2019-07-22] MEDS: Famotidine 20 MG TAB PO SCH ×2 (09:29→20:02)
[2019-07-22] MEDS: Famotidine/PF 20 mg/2ml Vial SLOW IVP SCH ×2 (09:29→20:03)
[2019-07-22] MEDS: Carvedilol 6.25 MG TAB PO SCH ×2 (09:29→20:02)
--- NOTE | 2019-07-22 09:40 | PDOC.OP ---
Operative Note - Operative Note Operative Note: PROCEDURE: Laparoscopic hand-assisted sigmoid colectomy with colostomy takedown and splenic flexure mobilization SURGEON: Aelx Love M.D. 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 However, she had infection tracking along the percutaneous drainage tract, and also developed a fistula into her bladder, so open drainage of her intra-abdominal and subcutaneous abscesses with diverting descending colostomy was performed. At the time she had too much inflammation of her sigmoid colon to perform a sigmoid colectomy. She now presents for sigmoid colectomy and colostomy takedown. Due to the severe inflammation of her sigmoid colon preoperative ureteral stent placement was requested. FINDINGS: Severe chronic inflammation of the sigmoid colon, with no bladder or ureteral injury identified. PROCEDURE IN DETAIL: After informed consent was obtained and appropriate bowel preparation and oral and IV antibiotics were administered the patient was taken to the operating room where she was placed in supine position and general endotracheal anesthesia was administered. The skin of the colostomy site was closed with a running silk suture. She was placed in lithotomy position and prepped and draped in standard sterile fashion. Cystoscopy and ureteral stent placement was performed by Dr. Posada, which is dictated under separate cover. Local anesthesia was infused the skin and subcutaneous tissues at the periumbilical area and a 6 cm incision made. Dissection was carried down to the fascia which was incised under direct vision. The peritoneal cavity was entered and no adhesions noted. A wound protector and GelPort were placed and carbon dioxide gas insufflated to an intra-abdominal pressure 15 which the patient tolerated well. A 5 mm epigastric and 12 mm right lower quadrant port were placed under direct laparoscopic vision, and later, a 5 mm right lateral and 5 mm left lower quadrant trocar were also placed to aid in dissection.. The patient was noted to have extensive small bowel adhesions to the colostomy site and to the sigmoid colon. These were carefully taken down under direct vision using sharp dissection through the avascular plane. The small bowel was then able to be mobilized away from the sigmoid colon but there were some remaining small bowel adhesions in the pelvis. These were also taken down through the avascular plane using sharp dissection so that the entire small bowel could be drawn up out of the pelvis and out of the operative site. The sigmoid colon was severely inflamed and thickened. The peritoneum lateral to the colon was incised and the colon was mobilized medially. As the sigmoid colon was lifted off of the retroperitoneum the ureter with its indwelling stent was palpated. The colon was mobilized medially and the entire course of the ureter through the area was able to be palpated. One area of particularly dense adhesions was in close proximity to a portion of the bladder which was tacked up in that location laterally. As these adhesions were divided, no patent fistula could be identified. Once the sigmoid mesentery had been mobilized off of the retroperitoneum and away from the ureter, a window was created through the mesial rectum of the normal-appearing soft rectum below the inflamed sigmoid segment. The bowel load of the laparoscopic stapler was obtained and placed through this window.. This was closed and fired dividing the upper rectum. The mesorectum and mesentery of the sigmoid colon were then divided using LigaSure until the entire sigmoid colon was resected. This was drawn out through the wound protector and marked with a proximal suture. Dr. Posada returned to the room and distended the bladder with methylene blue. There was no evidence of leak seen from the distended bladder, methylene blue reflux up into the physical ureter and no leak was seen from that area either. Attention was then turned to mobilization of the descending colon. The descending colon and distal transverse colon were entirely mobilized by incising the white line of Toldt and dividing the connections at the splenic flexure. Following this the descending colon was transected with the laparoscopic stapler at the level of the colostomy. The descending colon reached down easily to the rectal stump without tension. The operative site was examined and hemostasis was verified. The descending colon was then externalized through the wound protector and towels were placed around it. The staple line was excised and a 31 mm sizer easily placed into the descending colon. A 31 mm EEA stapler was obtained and the anvil secured with a full-thickness pursestring suture around the end of the distal descending colon. The colon was dropped back into the abdominal cavity. The patient had some residual formed stool in the rectum which was digitally removed and then the rectal stump was irrigated with Betadine dilated in saline. Sizers were easily passed to the end of the rectal stump under direct laparoscopic vision. A 31 mm EEA stapler was then passed to the end of the rectal stump and the spike advanced through the end of the rectum just below the staple line. This was mated to the anvil and the stapler was closed and fired. The EEA stapler was then removed and 2 full-thickness donuts were confirmed on the back table. Saline was instilled into the pelvis and a proctoscope placed into the distal rectum and air insufflated into the rectum with the descending colon digitally clamped, distending the staple line with gas. No bubbling was seen from the staple line which appeared entirely healthy. The saline was then suctioned out of the pelvis and the small intestine returned to its normal anatomic position. The omentum was drawn down over the small bowel. The 12 mm trocar in the right lower quadrant was removed and the fascial defect closed with a 0 Vicryl suture on a GraNee needle under direct laparoscopic vision. The other dissecting trochars were removed and hemostasis verified. The GelPort and wound protector were removed and Seprafilm placed anterior to the omentum. The fascia was closed with a running PDS suture. The wound was copiously irrigated and the skin was closed with running subcuticular Monocryl sutures. Dermabond dressings were placed and attention turned to colostomy closure. A transverse incision was made resecting a thin margin of the skin surrounding the colostomy closure site dissection was carried down to the colostomy and the suture securing it to the anterior rectus sheath were divided. The colostomy was excised and discarded. The posterior rectus sheath was closed under direct vision with PDS sutures, and the anterior rectus sheath was also closed with another layer of PDS sutures under direct vision. Local anesthesia was infused for postoperative pain control as tap blocks on the left had been difficult to perform per anesthesia. The subcutaneous tissues were copiously irrigated. Subcutaneous tissues were loosely approximated centrally with absorbable sutures. The skin was then reapproximated at intervals with 4-0 Monocryl subcuticular sutures and iodoform packing placed into the wound in between the sutures. A gauze and Tegaderm dressing were placed. The patient was extubated and taken to recovery in good condition. Estimated blood loss was 100 mL. There were no complications. Specimen is sigmoid colon, with suture proximal.
--- NOTE | 2019-07-22 09:47 | PDOC.GSPN ---
Surgery Progress Note: Subj - Subjective Narrative: Patient feels well. She denies any nausea vomiting or pain. She has not passed any gas yet. She is using her incentive spirometer but only able to pull about 500 mL's he was coaching. Her lungs are clear and her incisions look good. She has had low-grade fever of 99.7 but other vitals are normal. White count is normal. Hematocrit has gone down somewhat to 27 which is about where she was this spring. She is not having any chest pain shortness of breath or lightheadedness. I will recheck this in the morning before restarting her Eliquis. Dr. Leigh is covering for me tomorrow and Wednesday. Surgery Progress Note: Obj - Vital signs Vital signs: Vital Signs - Most Recent Temp Pulse Resp BP Pulse Ox 99.1 F 69 14 126/54 L 100 07/22/19 07:26 07/22/19 07:26 07/22/19 07:26 07/22/19 09:29 07/22/19 07:26 Surgery Progress Note: Results - Labs Result Diagrams: 07/22/19 04:00 07/22/19 04:00 Lab results: Laboratory Results - last 24 hr 07/22/19 07/22/19 04:00 04:00 WBC 10.5 RBC 2.93 L Hgb 9.3 L Hct 27.4 L MCV 93.7 MCH 31.7 H MCHC 33.8 RDW 13.2 Plt Count 283 MPV 7.2 L Neutrophils % 74.2 Lymphocytes % 19.8 L Monocytes % 5.6 Eosinophils % 0.1 Basophils % 0.3 Neutrophils # 7.8 H Lymphocytes # 2.1 Monocytes # 0.6 H Eosinophils # 0.0 Basophils # 0.0 Sodium 135 L Potassium 4.1 Chloride 107 Carbon Dioxide 21 L Anion Gap 11 BUN 10 Creatinine 0.84 Estimated GFR (MDRD) 80 Glucose 111 H Calcium 8.7
[2019-07-22] MEDS: Enoxaparin Sodium 40 MG/0.4 ML SYRINGE SC SCH (09:58)
--- NOTE | 2019-07-22 11:20 | PRG ---
DATE OF SERVICE: 07/22/2019 SUBJECTIVE: The patient states that she is feeling fine. She has some abdominal tenderness as expected. She is not complaining of any significant left flank pain or bladder discomfort. OBJECTIVE: VITAL SIGNS: Temperature 99.1, pulse 69, blood pressure 126/54, respirations 14, and saturation 100% on room air. GENERAL: No apparent distress. Communicative and alert. CARDIOVASCULAR: Regular rate and rhythm. ABDOMEN: Soft, mildly tender to palpation. Incision clean, dry, and intact. GENITOURINARY: Alarcon catheter in place with slightly reddish-colored urine. Ureteral catheter is still secured to the Alarcon catheter. EXTREMITIES: No clubbing, cyanosis, or edema. LABORATORY EVALUATION: Full set of labs are in the [facility], which I have reviewed. Of note, the patient's white count is 10.5 with hemoglobin of 9.3. Creatinine of 0.84. ASSESSMENT AND PLAN: A 74-year-old black female with colostomy takedown and reanastomosis with sigmoidectomy with placement of ureteral catheter and bladder filling, intraoperative testing for leak, which none was detected. The patient can have her catheter removed whenever it is acceptable by Dr. Love. Both ureteral catheter and the Alarcon catheter can be removed at the same time. The patient can resume normal voiding at any point as there is no leak and there is nothing to be concerned about from a urologic standpoint. I will sign off and if there is any further assistance or any problems, please feel free to re-consult me. Of note, the patient does have mild hematuria, which is of no significant concern. This is likely secondary to manipulations from inside her urinary tract with the ureteral catheter and Alarcon. This should clear up on its own without any significant issues as long as the patient stays well hydrated. Job ID: [id number]
--- NOTE | 2019-07-22 15:15 | OP ---
DATE OF PROCEDURE: 07/21/2019 SERVICE: Urology. PREOPERATIVE DIAGNOSIS: Diverticulitis with possible colovesical fistula. POSTOPERATIVE DIAGNOSES: Diverticulitis without fistula and mild urethral stricture disease. INDICATIONS FOR PROCEDURE: Ms. Perez is a 74-year-old black female, who is known to me for previous history of urethral stricture disease and voiding dysfunction. I have previously treated her back then, but she unfortunately got diverticulitis in the past year and ended up having to undergo a diverting colostomy by Dr. Love. During the interim, she had foul-smelling urine and had a high concern for a possible colovesical fistula. It is unclear if this had completely healed or not, but Dr. Love had planned to take her back for sigmoidectomy after several months and reverse her colostomy. She asked that I place the ureteral stent in at that time to ensure that she did not have a ureteral injury and to assess the bladder in case the bladder needed to be closed to identify any leaks. All risks and benefits of surgery have been discussed prior to the surgery and the patient agreed to proceed forward. DESCRIPTION OF PROCEDURE: After identification of armband and verification of consent, the patient was brought back to the operating room, where she underwent general anesthesia with an endotracheal intubation. She was then placed in dorsal lithotomy position and prepped and draped in usual sterile fashion. After appropriate time-out, a lubricated 22-Botswanan rigid cystoscope was introduced per urethra. There was a mild urethral stricture, which was gently dilated using the beak of the cystoscope and was able to be passed in without any significant trauma. The bladder does show grade 2 trabeculations with approximately 4 diverticula, all diverticula were evaluated and there was no evidence of any kind of fistula. There were multiple inflamed areas, which could not definitively be identified if these were fistulous tracts or just inflammation of the bladder being adjacent to a chronically-inflamed colon. In either case, a 5-B[place]an Pollack catheter was intubated into the left ureteral orifice and advanced up to the 20 cm keon. The cystoscope was then removed and a Alarcon catheter placed alongside the Pollack catheter into the bladder with 10 mL of sterile water placed into the balloon. The Pollack catheter was fed through the base of the 16-B[place]wanan Alarcon using a 14-gauge Angiocath needle and then this was connected to gravity drainage. The catheters were secured to each other using waterproof tape and I then left Dr. Love to do her hand-assisted lap sigmoidectomy. I came back after approximately an hour to evaluate how Dr. Love was doing. The operative note can be dictated separately. At that time, Dr. Love said she was able to get out the entire sigmoid colon. She did not notice any obvious bladder injury and the ureter was identified and found to be intact with ureteral catheter not being exposed. I filled the bladder with methylene blue retrograde via the Alarcon catheter with 300 mL, at which point no extravasation or leakage was seen from the bladder indicating that there was no fistula or if there was one previously had closed over and there was no leak on the bladder. I satisfied that the catheter was let to gravity drainage and I completed my portion of the case. Dr. Love completed her surgery as will be dictated separately in her operative report. COMPLICATIONS: From my part, none. ESTIMATED BLOOD LOSS: Minimal. RETAINED TUBES AND DRAINS: A 5-B[place]wanan Pollack catheter in the left ureter fed into a 16-B[place]wanan Alarcon catheter to gravity drainage. SPECIMENS: None. DISPOSITION: The patient will be admitted to Dr. Love's Service postoperatively. Her catheter can be removed along with the Pollack catheter at any point when Dr. Love feels reasonable for her postoperative care. Job ID: [id number]
[2019-07-23] MEDS: Ondansetron PF 4 MG/2 ML Vial IVP PRN ×2 (05:33→10:20)
[2019-07-23 05:50] LABS: #Lymphocytes 1.9 thou/uL (1.20-3.40); #Monocytes 0.4 thou/uL (0.11-0.59); #Neutrophils 7.7 thou/uL (1.40-6.50); %Basophils 0.2 % (0.0-1.0); %Eosinophils 0.1 % (0.0-10.0); %Lymphocytes 19.3 % (21.0-51.0); %Monocytes 3.8 % (0.0-10.0); %Neutrophils 76.7 % (42.0-75.0); Hemoglobin 9.4 g/dL (12.0-16.0); Mean Corpuscular HGB CONC 33.8 g/dL (32.0-36.0); Mean Corpuscular Hemoglobin 31.4 pg (27.0-31.0); Mean Corpuscular Volume 92.7 fL (78.0-98.0); Mean Platelet Volume 7.6 fL (7.4-10.4); Platelet Count 283 thou/uL (130-400); RBC Distribution Width 13.2 % (11.5-14.5); Red Blood Cell (RBC) Count 2.99 mill/uL (4.20-5.40); White Blood Cell (WBC) Count 10.1 thou/uL (4.8-10.8)
[2019-07-23] MEDS: Sodium Chloride 0.9% 1,000 ML IV SCH ×2 (09:12→18:13)
[2019-07-23] MEDS: Famotidine/PF 20 mg/2ml Vial SLOW IVP SCH ×2 (09:18→20:56)
[2019-07-23] MEDS: Famotidine 20 MG TAB PO SCH ×2 (09:21→20:54)
[2019-07-23] MEDS: Carvedilol 6.25 MG TAB PO SCH ×2 (10:11→20:54)
[2019-07-23] MEDS: Enoxaparin Sodium 40 MG/0.4 ML SYRINGE SC SCH (11:23)
--- NOTE | 2019-07-23 14:56 | PRG ---
DATE OF SERVICE: 07/23/2019 SUBJECTIVE: Marco Perez is doing well today. OBJECTIVE: VITAL SIGNS: Temperature 98.5 degrees, pulse 68, and blood pressure 169/86. GENERAL: Her Alarcon is in place. She has some hematuria. LUNGS: Clear to auscultation. CARDIAC: Regular rate and rhythm without murmur or gallop. ABDOMEN: Soft. Occasional bowel sounds. Surgical wounds look good. LABORATORY DATA: White count 10 and hemoglobin 9.4, stable. Basic metabolic profile is normal. ASSESSMENT AND PLAN: Doing well status post colostomy reversal. We would start clear liquids and go slow. Continue IV fluids. Job ID: [id number]
[2019-07-24] MEDS: Sodium Chloride 0.9% 1,000 ML IV SCH ×3 (02:39→18:26)
[2019-07-24] MEDS: Carvedilol 6.25 MG TAB PO SCH ×3 (08:15→20:52)
[2019-07-24] MEDS: Famotidine/PF 20 mg/2ml Vial SLOW IVP SCH ×2 (08:16→20:44)
[2019-07-24] MEDS: Famotidine 20 MG TAB PO SCH ×2 (08:21→20:44)
[2019-07-24] MEDS: Enoxaparin Sodium 40 MG/0.4 ML SYRINGE SC SCH (09:58)
--- NOTE | 2019-07-24 12:21 | PDOC.GSPN ---
Surgery Progress Note: Subj - Subjective Patient reports: no new complaints, nausea, no bowel movement, vomiting Narrative: No complaints. denies pain and has not asked for any prn pain medications. has not had a bowel movement yet. Nursing staff states that hematuria has improved but is not resolved yet. Nursing also states that pt has had N/V after drinking and liquid diet trial of broth. Has been seen today by Dr. Leigh covering for Dr. Love. Was seen by Urology yesterday. Surgery Progress Note: Obj - Vital signs Vital signs: Vital Signs - Most Recent Temp Pulse Resp BP Pulse Ox 97.5 F L 70 16 149/82 H 98 07/24/19 11:20 07/24/19 11:20 07/24/19 11:20 07/24/19 11:20 07/24/19 11:20 - Physical Exam General: no distress, no pain Cardiovascular: regular rate and rhythm, no murmur Respiratory: clear to auscultation, normal expansion, normal respiratory effort , breath sounds present Abdomen: soft, non tender, decreased bowel sounds, other (surgical incisions appear to be healing without erythema or signs of infection.) Hernia: none Wound: dressing clean,dry,intact, healing well. negative: drainage, erythma/ edema Surgery Progress Note: Results - Labs Result Diagrams: 07/23/19 04:37 07/22/19 04:00
[2019-07-24] MEDS: Ondansetron PF 4 MG/2 ML Vial IVP PRN (20:44)
[2019-07-25] MEDS: Sodium Chloride 0.9% 1,000 ML IV SCH (03:05)
[2019-07-25 05:14] LABS: #Lymphocytes 2.1 thou/uL (1.20-3.40); #Monocytes 0.6 thou/uL (0.11-0.59); #Neutrophils 5.1 thou/uL (1.40-6.50); %Basophils 0.2 % (0.0-1.0); %Monocytes 7.4 % (0.0-10.0); %Neutrophils 65.3 % (42.0-75.0); Mean Corpuscular HGB CONC 33.8 g/dL (32.0-36.0); Mean Corpuscular Hemoglobin 31.6 pg (27.0-31.0); Mean Corpuscular Volume 93.6 fL (78.0-98.0); Mean Platelet Volume 7.2 fL (7.4-10.4); Platelet Count 286 thou/uL (130-400); Red Blood Cell (RBC) Count 2.83 mill/uL (4.20-5.40); White Blood Cell (WBC) Count 7.8 thou/uL (4.8-10.8)
[2019-07-25 05:29] LABS: Anion Gap 12 mmol/L (10-20); BUN (Urea Nitrogen) 13 mg/dL (9.8-20.1); Calc. Creatinine Clearance 72 mL/min (70-130); Calcium 8.3 mg/dL (7.8-10.44); Carbon Dioxide 23 mmol/L (23-31); Chloride 110 mmol/L (98-107); Estimated GFR-MDRD Greater than 90; Glucose 124 mg/dL (83-110); Potassium 3.7 mmol/L (3.5-5.1); Sodium 141 mmol/L (136-145)
--- NOTE | 2019-07-25 09:04 | PRG ---
DATE OF SERVICE: 07/24/2019 SUBJECTIVE: Ms. Perez is doing well today. She had nausea and vomiting after having NG tube clamped during ambulation. The patient had a small Ms. Perez, this is a late entry from 07/24/2019 visitation. The patient is seen by Dr. Love. The patient's urine output is good. Hematuria has cleared. She did have some emesis and wants to stay on clear liquids. Nausea has resolved. She has passed flatus. OBJECTIVE: VITAL SIGNS: Temperature 98.9 degrees, pulse 78, and respiratory rate 14. HEAD, EARS, EYES, NOSE AND THROAT: Unremarkable. LUNGS: Clear to auscultation. CARDIAC: Regular rate and rhythm without murmur or gallop. ABDOMEN: Soft. Positive bowel sounds. Postoperative tenderness expected. Surgical wound look good. EXTREMITIES: Unremarkable. LABORATORY DATA: None for 07/24/2019. ASSESSMENT AND PLAN: Continue clear liquids as tolerated. She knows to not drink if she is nauseated. She seems to be tolerating liquids well. We will leave advancement of her diet for 07/25/[address] Love's return. Job ID: [id number]
[2019-07-25] MEDS: Famotidine 20 MG TAB PO SCH ×2 (09:53→20:43)
[2019-07-25] MEDS: Carvedilol 6.25 MG TAB PO SCH ×2 (09:53→20:44)
[2019-07-25] MEDS: Famotidine/PF 20 mg/2ml Vial SLOW IVP SCH ×2 (10:03→20:44)
[2019-07-25] MEDS: Enoxaparin Sodium 40 MG/0.4 ML SYRINGE SC SCH (18:28)
--- NOTE | 2019-07-25 20:26 | PDOC.GSPN ---
Surgery Progress Note: Subj - Subjective Narrative: Patient is feeling much better today. No further nausea. She has passed gas and had a liquid bowel movement today. She doesn't feel ready for solid food but would like to try some full liquids. She has developed some serous drainage from her right lateral laparoscopic trocar site. Her other wounds are clean. Fluid was sent for creatinine which was equivalent with serum. She has several liters positive in fluid balance since her admission. Urine is still bloody. Laparoscopic incisions are clean, with drainage only from the right lateral site. The old colostomy site is clean with no drainage. Assessment/plan: Peritoneal fluid drainage from laparoscopic trocar site. This is likely due to fluid overload and third spacing into the abdomen. I wrote to discontinue the IV fluids this morning when I came by this afternoon they were still running so I turned these off. No evidence of bladder leak. Patient still has hematuria so I will check with Dr. Posada before removing catheter and stent. She does have a history of urethral stricture and difficulty emptying her bladder. From the standpoint of her colectomy she is doing well with return of bowel function and we will advance her diet as tolerated. She may be ready to go home tomorrow. Surgery Progress Note: Obj - Vital signs Vital signs: Vital Signs - Most Recent Temp Pulse Resp BP Pulse Ox 98.5 F 69 14 154/77 H 95 07/25/19 11:32 07/25/19 11:32 07/25/19 11:32 07/25/19 11:32 07/25/19 11:32 Surgery Progress Note: Results - Labs Result Diagrams: 07/25/19 04:47 07/25/19 04:47
[2019-07-26] MEDS: Famotidine 20 MG TAB PO SCH ×2 (09:32→21:03)
[2019-07-26] MEDS: Carvedilol 6.25 MG TAB PO SCH ×2 (09:33→21:03)
[2019-07-26] MEDS: Famotidine/PF 20 mg/2ml Vial SLOW IVP SCH ×2 (09:35→21:22)
[2019-07-26] MEDS: Enoxaparin Sodium 40 MG/0.4 ML SYRINGE SC SCH (10:20)
--- NOTE | 2019-07-26 17:39 | PDOC.GSPN ---
Surgery Progress Note: Subj - Subjective Narrative: Patient is feeling okay. Still having a fair amount of serosanguineous drainage from the right lateral laparoscopic site. Urine output hasn't been quantified since she has been incontinent, but she states that she has been able to urinate since her catheter was discontinued. She states that there is still some blood in it but she thinks this is less. She has had another bowel movement and thinks it is beginning to firm up. She was tolerating full liquid diet when I saw her, and I have ordered GI soft diet. She feels like she is ready for solid food. Vital signs are okay. Assessment/plan: Doing well status post sigmoid colectomy and colostomy takedown. She thinks that the hematuria is improving since removal of Alarcon catheter and stent. She has some peritoneal fluid drainage from her laparoscopic incision, which I think is diminishing. If this does not resolve I may place a skin suture at this site. Colostomy site packing to be removed today. Likely discharge home tomorrow if tolerates diet. Surgery Progress Note: Obj - Vital signs Vital signs: Vital Signs - Most Recent Temp Pulse Resp BP Pulse Ox 99.0 F 67 16 137/75 95 07/26/19 15:11 07/26/19 15:11 07/26/19 15:11 07/26/19 15:11 07/26/19 15:11 Surgery Progress Note: Results - Labs Result Diagrams: 07/25/19 04:47 07/25/19 04:47
[2019-07-27] MEDS: Famotidine 20 MG TAB PO SCH (08:54)
[2019-07-27] MEDS: Carvedilol 6.25 MG TAB PO SCH (08:55)
[2019-07-27] MEDS: Famotidine/PF 20 mg/2ml Vial SLOW IVP SCH (09:12)
[2019-07-27] MEDS: Enoxaparin Sodium 40 MG/0.4 ML SYRINGE SC SCH (09:37)
[2019-07-27 15:04] VITALS: BP 95/62; TEMP 98.2
--- NOTE | 2019-07-27 18:00 | DIS ---
DATE OF ADMISSION: 07/21/2019 DATE OF DISCHARGE: 07/27/2019 FINAL DIAGNOSES: Sigmoid diverticulitis with colovesical fistula, hypertension, atrial fibrillation, and anemia. PROCEDURES: Cystoscopy and stent placement by Dr. Posada, sigmoid colectomy and takedown of colostomy. HOSPITAL COURSE: Ms. Perez is a 74-year-old woman with severe diverticulitis and pelvic abscess. She developed a colovesicular fistula and underwent diverting colostomy for this. She still had significant inflammatory changes, so a stent of the left ureter was performed prior to sigmoid colectomy and colostomy takedown. She underwent these procedures without difficulty. No persistent leak from the bladder was seen intraoperatively. She was decompressed postoperatively with a Alarcon catheter. She did have some mild hematuria related to the stent placement. The Alarcon catheter was discontinued and hematuria improved. She did develop some serosanguineous drainage from one of her laparoscopic ports. This was felt to be just drainage of ascitic fluid due to some fluid overload. Her IV fluids were stopped and the drainage significantly diminished. At the time of her discharge, she was tolerating a regular soft diet and having liquid bowel movements that were starting to become more formed. She was not having any nausea or vomiting. Her incisions were all healing well. The colostomy site was clean after removal of the packing. She still had some serous drainage from the right lateral port site, but this had significantly diminished in volume. She is to continue to do surface dressings to the right lateral port site and to the colostomy site. She is going to see me back in the clinic next week for wound check. She is to continue with her soft diet, advance this as tolerated. She was encouraged to take supplements such as Boost or Ensure between meals to ensure that she is getting enough protein to heal. If her hematuria worsens, she is to contact Dr. Posada. Job ID: [id number]
[2019-07-27] MEDS ORDERED: Apixaban 5 MG TAB PO SCH (21:00)
== END 2019-07-27 16:06 | disposition home health service (06) | DRG 330 ==
LOC: SURG A 07-21 06:20 → SURG B 07-21 17:03
PROVIDERS: ADMIT Urology; ATTEND Urology
PROC: 0DTN0ZZ Resection of Sigmoid Colon, Open Approach (ICD-10-PCS; principal; 2019-07-21)
PROC: 0DBL0ZZ Excision of Transverse Colon, Open Approach (ICD-10-PCS; 2019-07-21)
PROC: 0T778DZ Dilation of Left Ureter with Intraluminal Device, Via Natural or Artificial Opening Endoscopic (ICD-10-PCS; 2019-07-21)
PROC: 3E0234Z Introduction of Serum, Toxoid and Vaccine into Muscle, Percutaneous Approach (ICD-10-PCS; 2019-07-21)
DX: K57.32 Diverticulitis of large intestine without perforation or abscess without bleeding (principal); I42.0 Dilated cardiomyopathy; T83.83XA Hemorrhage due to genitourinary prosthetic devices, implants and grafts, initial encounter; R18.8 Other ascites; I48.0 Paroxysmal atrial fibrillation; I10 Essential (primary) hypertension; D64.9 Anemia, unspecified; N35.92 Unspecified urethral stricture, female; N32.3 Diverticulum of bladder; Y83.1 Surgical operation with implant of artificial internal device as the cause of abnormal reaction of the patient, or of later complication, without mention of misadventure at the time of the procedure; E87.70 Fluid overload, unspecified; Z43.3 Encounter for attention to colostomy; Z23 Encounter for immunization; Z79.899 Other long term (current) drug therapy; Z79.01 Long term (current) use of anticoagulants; Z79.82 Long term (current) use of aspirin; Z95.810 Presence of automatic (implantable) cardiac defibrillator; Z86.018 Personal history of other benign neoplasm; Z90.710 Acquired absence of both cervix and uterus
CPT/HCPCS: 36415; 36416; 80048; 82570; 83880; 85025; 88307; C1758; C1769; J0131; J0360; J0670; J0694; J1100; J1650; J1956; J2001; J2250; J2370; J2405; J2704; J3010; J3490; Q9968; S0028

== ENCOUNTER 2019-08-16 09:54 | Outpatient (CLI) | payer MEDICARE, OTHER ==
--- NOTE | 2019-08-16 15:45 | RAD ---
CYSTOGRAM: 08/16/19 HISTORY: Colovesical fistula. Urethral stricture. FINDINGS: 200 mL of iodinated water soluble iodinated contrast was infused into the urinary bladder via Alarcon c atheter. There is unobstructed flow of contrast into the urinary bladder without filling defects. Multiple eliazar dder diverticula are seen. There is one outpouching arising from the left side of the urinary bladder which has a neck-like appearance. It cannot be said with certainty if this represents a diverticulum or fistula/sinus formation. The Alarcon catheter was removed and the patient asked to empty her bladder under fluoroscopy. The ure thra appears normal. A small amount of residual contrast is seen in the urinary bladder, small divert icula and the left sided outpouching described above. IMPRESSION: 1. No evidence of urethral stricture. 2. Multiple urinary bladder diverticula. Diverticulum versus fistulous communication/sinus formation on the left. Correlation with CT scan wou ld be helpful. POS: AQUILINO
== END 2019-08-16 09:55 | disposition home or self-care (01) ==
LOC: RAD 09:54
PROVIDERS: ATTEND Urology
DX: N32.1 Vesicointestinal fistula (principal); N35.92 Unspecified urethral stricture, female; N32.3 Diverticulum of bladder
CPT/HCPCS: 51600; 74430

== ENCOUNTER 2021-05-23 15:37 | Emergency (ER) | payer MEDICARE, OTHER ==
[2021-05-23 16:57] LABS: #Basophils 0.1 thou/uL (0.0-0.2); #Lymphocytes 2.3 thou/uL (1.20-3.40); #Monocytes 0.6 thou/uL (0.11-0.59); #Neutrophils 1.7 thou/uL (1.40-6.50); %Basophils 1.6 % (0.0-1.0); %Eosinophils 0.4 % (0.0-10.0); %Lymphocytes 48.4 % (21.0-51.0); %Monocytes 13.7 % (0.0-10.0); Hemoglobin 11.1 g/dL (12.0-16.0); Mean Corpuscular HGB CONC 34.2 g/dL (32.0-36.0); Mean Corpuscular Hemoglobin 32.5 pg (27.0-31.0); Mean Corpuscular Volume 95.1 fL (78.0-98.0); Mean Platelet Volume 7.6 fL (7.4-10.4); Platelet Count 205 thou/uL (130-400); RBC Distribution Width 12.7 % (11.5-14.5); Red Blood Cell (RBC) Count 3.42 mill/uL (4.20-5.40); White Blood Cell (WBC) Count 4.7 thou/uL (4.8-10.8)
[2021-05-23 17:10] LABS: ALT (SGPT) 7 U/L (8-55); AST (SGOT) 17 U/L (5-34); Alkaline Phosphatase 72 U/L (40-110); Anion Gap 11 mmol/L (10-20); BUN (Urea Nitrogen) 14 mg/dL (9.8-20.1); Bilirubin, Total 0.7 mg/dL (0.2-1.2); Calc. Creatinine Clearance 0 mL/min (70-130); Carbon Dioxide 27 mmol/L (23-31); Chloride 106 mmol/L (98-107); Globulin 3.5 g/dL (2.4-3.5); Glucose 109 mg/dL (83-110); Potassium 4.3 mmol/L (3.5-5.1); Protein, Total 7.5 g/dL (5.8-8.1); Sodium 140 mmol/L (136-145)
== END 2021-05-23 18:55 | disposition home or self-care (01) ==
LOC: ERS 15:37
DX: U07.1 COVID-19 (principal); D64.9 Anemia, unspecified; G30.9 Alzheimer's disease, unspecified; I10 Essential (primary) hypertension; Z79.82 Long term (current) use of aspirin; Z79.01 Long term (current) use of anticoagulants; Z79.899 Other long term (current) drug therapy
CPT/HCPCS: 36415; 71045; 80053; 85025; 93005

== ENCOUNTER 2021-12-16 13:40 | Emergency (ER) | payer MEDICARE, OTHER ==
[2021-12-16 15:06] LABS: #Monocytes 0.3 thou/uL (0.11-0.59); #Neutrophils 2.3 thou/uL (1.40-6.50); %Eosinophils 0.5 % (0.0-10.0); %Lymphocytes 42.7 % (21.0-51.0); %Monocytes 6.4 % (0.0-10.0); %Neutrophils 49.5 % (42.0-75.0); Hemoglobin 10.7 g/dL (12.0-16.0); Mean Corpuscular HGB CONC 33.1 g/dL (32.0-36.0); Mean Corpuscular Volume 96.7 fL (78.0-98.0); Mean Platelet Volume 6.9 fL (7.4-10.4); Platelet Count 276 thou/uL (130-400); RBC Distribution Width 12.9 % (11.5-14.5); Red Blood Cell (RBC) Count 3.34 mill/uL (4.20-5.40); White Blood Cell (WBC) Count 4.6 thou/uL (4.8-10.8)
[2021-12-16 15:30] LABS: ALT (SGPT) Less than 7 U/L (8-55); AST (SGOT) 11 U/L (5-34); Alkaline Phosphatase 61 U/L (40-110); Anion Gap 14 mmol/L (10-20); BUN (Urea Nitrogen) 13 mg/dL (9.8-20.1); Bilirubin, Total 0.9 mg/dL (0.2-1.2); Calc. Creatinine Clearance 0 mL/min (70-130); Calcium 9.1 mg/dL (7.8-10.44); Carbon Dioxide 24 mmol/L (23-31); Chloride 108 mmol/L (98-107); Globulin 2.9 g/dL (2.4-3.5); Glucose 99 mg/dL (83-110); Potassium 3.9 mmol/L (3.5-5.1); Protein, Total 6.9 g/dL (5.8-8.1); Sodium 142 mmol/L (136-145)
[2021-12-16 16:10] LABS: Bacteria/HPF 2+ HPF (None Seen); Bilirubin Negative (Negative); Blood, Urine 3+ (Negative); Clarity Clear (Clear); Glucose, Urine (Dipstick) Normal (Negative); Ketone, Urine Negative (Negative); Leukocyte 250 Leu/uL (Negative); Nitrite Negative (Negative); Protein, Urine (Dipstick) Negative (Neg-Trace); RBC/HPF 21-50 HPF (0-3); Specific Gravity, Urine 1.018 (1.002-1.036); Squamous Epithelial 0-3 HPF (0-3); Urobilinogen Normal mg/dL (Less than 2); pH, Urine 6.5 (5.0-9.0)
[2021-12-16] MEDS ORDERED: Cephalexin 250 MG CAP ONE (16:30)
== END 2021-12-16 16:45 | disposition home or self-care (01) ==
LOC: ERS 13:40
DX: N39.0 Urinary tract infection, site not specified (principal); D64.9 Anemia, unspecified; I10 Essential (primary) hypertension
CPT/HCPCS: 36415; 51701; 80053; 81003; 81015; 84484; 85025; 87077; 87086; 93005

== ENCOUNTER 2022-04-26 10:37 | Emergency (ER) | payer MEDICARE, OTHER ==
[2022-04-26 11:05] LABS: #Lymphocytes 1.8 thou/uL (1.20-3.40); #Monocytes 0.4 thou/uL (0.11-0.59); #Neutrophils 2.9 thou/uL (1.40-6.50); %Basophils 0.6 % (0.0-1.0); %Eosinophils 0.6 % (0.0-10.0); %Lymphocytes 35.6 % (21.0-51.0); %Monocytes 7.3 % (0.0-10.0); %Neutrophils 55.9 % (42.0-75.0); Hemoglobin 11.2 g/dL (12.0-16.0); Mean Corpuscular HGB CONC 33.1 g/dL (32.0-36.0); Mean Corpuscular Hemoglobin 31.9 pg (27.0-31.0); Mean Corpuscular Volume 96.3 fL (78.0-98.0); Mean Platelet Volume 7.7 fL (7.4-10.4); Platelet Count 257 thou/uL (130-400); RBC Distribution Width 13.1 % (11.5-14.5); Red Blood Cell (RBC) Count 3.51 mill/uL (4.20-5.40); White Blood Cell (WBC) Count 5.1 thou/uL (4.8-10.8)
[2022-04-26 11:26] LABS: ALT (SGPT) 9 U/L (8-55); AST (SGOT) 24 U/L (5-34); Albumin 4.2 g/dL (3.4-4.8); Alkaline Phosphatase 67 U/L (40-110); Anion Gap 15 mmol/L (10-20); BUN (Urea Nitrogen) 16 mg/dL (9.8-20.1); Bilirubin, Total 0.9 mg/dL (0.2-1.2); Calc. Creatinine Clearance 0 mL/min (70-130); Calcium 9.6 mg/dL (7.8-10.44); Carbon Dioxide 26 mmol/L (23-31); Chloride 104 mmol/L (98-107); Estimated GFR 69; Globulin 3.9 g/dL (2.4-3.5); Glucose 129 mg/dL (83-110); Potassium 4.9 mmol/L (3.5-5.1); Protein, Total 8.1 g/dL (5.8-8.1); Sodium 140 mmol/L (136-145)
[2022-04-26 12:44] LABS: Bilirubin Negative (Negative); Blood, Urine Negative (Negative); Clarity Clear (Clear); Glucose, Urine (Dipstick) Normal (Negative); Ketone, Urine Negative (Negative); Leukocyte Negative Leu/uL (Negative); Nitrite Negative (Negative); Protein, Urine (Dipstick) 10 mg/dL (Neg-Trace); Specific Gravity, Urine 1.019 (1.002-1.036); Urobilinogen Normal mg/dL (Less than 2)
[2022-04-26 13:41] LABS: SARS-CoV-2 NAA Rapid Test DETECTED (NotDetected)
== END 2022-04-26 14:35 | disposition home or self-care (01) ==
LOC: ERS 10:37
DX: U07.1 COVID-19 (principal); R53.81 Other malaise; R53.83 Other fatigue; I10 Essential (primary) hypertension; Z79.899 Other long term (current) drug therapy; Z79.82 Long term (current) use of aspirin
CPT/HCPCS: 71045; 80053; 81003; 83605; 84484; 85025; 93005; 94760; U0002; 36415; 96360

== ENCOUNTER 2022-04-27 00:49 | Emergency (ER) | payer MEDICARE, OTHER ==
[2022-04-27] MEDS ORDERED: Ondansetron PF 4 MG/2 ML Vial ONE (01:35)
[2022-04-27 01:48] LABS: #Lymphocytes 1.7 thou/uL (1.20-3.40); #Monocytes 0.4 thou/uL (0.11-0.59); #Neutrophils 5.7 thou/uL (1.40-6.50); %Basophils 0.1 % (0.0-1.0); %Eosinophils 0.6 % (0.0-10.0); %Lymphocytes 21.6 % (21.0-51.0); %Monocytes 4.6 % (0.0-10.0); %Neutrophils 73.1 % (42.0-75.0); Hemoglobin 10.5 g/dL (12.0-16.0); Mean Corpuscular HGB CONC 31.7 g/dL (32.0-36.0); Mean Corpuscular Hemoglobin 31.1 pg (27.0-31.0); Mean Corpuscular Volume 98.2 fL (78.0-98.0); Mean Platelet Volume 7.3 fL (7.4-10.4); Platelet Count 237 thou/uL (130-400); RBC Distribution Width 12.9 % (11.5-14.5); Red Blood Cell (RBC) Count 3.38 mill/uL (4.20-5.40); White Blood Cell (WBC) Count 7.8 thou/uL (4.8-10.8)
[2022-04-27 02:08] LABS: ALT (SGPT) 8 U/L (8-55); AST (SGOT) 22 U/L (5-34); Albumin 3.9 g/dL (3.4-4.8); Alkaline Phosphatase 60 U/L (40-110); Anion Gap 15 mmol/L (10-20); BUN (Urea Nitrogen) 13 mg/dL (9.8-20.1); Bilirubin, Total 0.6 mg/dL (0.2-1.2); Calc. Creatinine Clearance 0 mL/min (70-130); Calcium 8.7 mg/dL (7.8-10.44); Carbon Dioxide 23 mmol/L (23-31); Chloride 105 mmol/L (98-107); Estimated GFR 85; Glucose 155 mg/dL (83-110); Lipase 21 U/L (8-78); Magnesium 2.1 mg/dL (1.6-2.6); Protein, Total 6.9 g/dL (5.8-8.1); Sodium 139 mmol/L (136-145)
[2022-04-27 04:07] LABS: Bilirubin Negative (Negative); Blood, Urine Negative (Negative); Clarity Clear (Clear); Glucose, Urine (Dipstick) 50 mg/dL (Negative); Ketone, Urine Negative (Negative); Leukocyte Negative Leu/uL (Negative); Nitrite Negative (Negative); Protein, Urine (Dipstick) Negative (Neg-Trace); Urobilinogen Normal mg/dL (Less than 2)
== END 2022-04-27 04:49 | disposition home or self-care (01) ==
LOC: ERS 00:49
DX: U07.1 COVID-19 (principal); R11.2 Nausea with vomiting, unspecified; I10 Essential (primary) hypertension; D64.9 Anemia, unspecified; G30.9 Alzheimer's disease, unspecified; F02.80 Dementia in other diseases classified elsewhere, unspecified severity, without behavioral disturbance, psychotic disturbance, mood disturbance, and anxiety
CPT/HCPCS: 36415; 71045; 80053; 81003; 83605; 83690; 83735; 84484; 85025; 96374; J2405

== ENCOUNTER 2024-05-16 11:00 | Emergency (ER) | payer MEDICARE, MEDICAID ==
[2024-05-16 11:39] LABS: #Basophils Less than 0.03 10x3/uL (0.0-0.2); %Basophils 0.2 % (0.0-1.0); %Eosinophils 0.5 % (0.0-10.0); %Lymphocytes 52.8 % (21.0-51.0); %Monocytes 6.5 % (0.0-10.0); %Neutrophils 39.8 % (42.0-75.0); Hematocrit 35.1 % (36.0-47.0); Hemoglobin 11.7 g/dL (12.0-16.0); Mean Corpuscular HGB CONC 33.3 g/dL (32.0-36.0); Mean Corpuscular Hemoglobin 30.6 pg (27.0-31.0); Mean Corpuscular Volume 91.9 fL (78.0-98.0); Mean Platelet Volume 10.4 fL (7.4-10.4); Platelet Count 221 10x3/uL (130-400); RBC Distribution Width 13.2 % (11.5-14.5); Red Blood Cell (RBC) Count 3.82 mill/uL (4.20-5.40)
[2024-05-16 12:05] LABS: Acetaminophen Less than 10 mcg/mL (10.0-30.0); Alcohol Less than 10.0 mg/dL (Less than 10); Salicylate Less than 8.0 mg/dL (15.0-30.0)
[2024-05-16 12:07] LABS: ALT (SGPT) 9 U/L (8-55); AST (SGOT) 15 U/L (5-34); Albumin 3.9 g/dL (3.4-4.8); Alkaline Phosphatase 67 U/L (40-110); Anion Gap 12 mmol/L (10-20); BUN (Urea Nitrogen) 13 mg/dL (9.8-20.1); Calc. Creatinine Clearance 0 mL/min (70-130); Calcium 9.8 mg/dL (7.8-10.44); Carbon Dioxide 25 mmol/L (23-31); Chloride 107 mmol/L (98-107); Estimated GFR 75; Globulin 3.3 g/dL (2.4-3.5); Glucose 135 mg/dL (83-110); Potassium 4.3 mmol/L (3.5-5.1); Protein, Total 7.2 g/dL (5.8-8.1); Sodium 140 mmol/L (136-145)
[2024-05-16 12:23] LABS: Bacteria/HPF 4+ HPF (None Seen); Bilirubin Negative (Negative); Blood, Urine 3+ (Negative); CAUTI Indications for Culture Dysuria,urgency,freq; Clarity Turbid (Clear); Glucose, Urine (Dipstick) Normal (Negative); Ketone, Urine Negative (Negative); Leukocyte 500 Leu/uL (Negative); Nitrite Negative (Negative); Protein, Urine (Dipstick) 20 mg/dL (Neg-Trace); Urobilinogen Normal mg/dL (Less than 2); pH, Urine 5.5 (5.0-9.0)
[2024-05-16 12:26] LABS: Amphetamine Not Detected (NotDetected); Barbiturates Screen Not Detected (NotDetected); Benzodiazepine Screen Not Detected (NotDetected); Cocaine Metabolite Screen Not Detected (NotDetected); Methadone Not Detected (NotDetected); Methamphetamine Not Detected (NotDetected); Opiate Screen Not Detected (NotDetected); Oxycodone Screen Not Detected (NotDetected); Phencyclidine (PCP) Not Detected (NotDetected); THC/Cannabinoid Screen Not Detected (NotDetected); Tricyclic Screen Not Detected (NotDetected); WBC/HPF 21-50 HPF (0-3)
[2024-05-16 12:28] LABS: Urine Culture Reflex Yes Yes
[2024-05-16] MEDS ORDERED: cefTRIAXone (ROCEPHIN) 1 GM VIAL ONE (12:50)
== END 2024-05-16 14:11 | disposition home or self-care (01) ==
LOC: ERS 11:00
DX: N39.0 Urinary tract infection, site not specified (principal); F03.90 Unspecified dementia, unspecified severity, without behavioral disturbance, psychotic disturbance, mood disturbance, and anxiety; I10 Essential (primary) hypertension; D64.9 Anemia, unspecified; Z55.6 Problems related to health literacy; Z95.0 Presence of cardiac pacemaker
CPT/HCPCS: 70450; 71045; 80306; 80307; 81001; 82140; 87077; 87086; 93005; J0696; 80053; 84443; 85025; 96374